=== PATIENT | male | born 1960 | race American Indian/Alaskan Native ===

== ENCOUNTER 2018-06-07 14:48 | Inpatient (IN) | payer BC, MEDICAID, OTHER ==
[2018-06-07 14:57] VITALS: BMI 19.6
[2018-06-07] MEDS: Albuterol-Ipratrop 3 mg / 0.5 (3 ml) UD IH SCH ×3 (16:15→17:05)
--- NOTE | 2018-06-07 16:18 | ED PDOC ---
Arrival/HPI - General Historian: Patient - History of Present Illness Narrative History of Present Illness (Text): 06/07/18 16:23 57M w/ a PMH of lung CA dx September 2017 status post chemo/radiation therapy [facility] Patient reported that while receiving infusion yesterday he began experiencing itching/rash, diaphoresis, shortness of breath/ wheezing. Speaking w/ staff from [facility] patient received demerol benadryl breathing treatment which lead to resolution of his symptoms; reportedly afebrile in office yesterday. At time of evaluation patient denies any chest pain, palpitations, n/v/d/c, urinary complaints. Did report some improvement w/ breathing treatment. Time/Duration: Prior to Arrival, 24 hours Symptom Onset: Gradual Symptom Course: Worsening Quality: Other <Abiodun Weston - Last Filed: 06/07/18 21:07> <Antonio Arriaga DO - Last Filed: 06/07/18 21:23> - General Chief Complaint: Shortness Of Breath Time Seen by Provider: 06/07/18 16:23 Past Medical History - Provider Review Nursing Documentation Reviewed: Yes - Pulmonary Hx Lung Cancer: Yes - Psychiatric Hx Substance Use: No <Abiodun Weston - Last Filed: 06/07/18 21:07> Family/Social History - Physician Review Nursing Documentation Reviewed: Yes Family/Social History: Unknown Family HX Smoking Status: Former Smoker Hx Alcohol Use: No Hx Substance Use: No <Abiodun Weston - Last Filed: 06/07/18 21:07> Allergies/Home Meds <Abiodun Weston - Last Filed: 06/07/18 21:07> <Antonio Arriaga DO - Last Filed: 06/07/18 21:23> Allergies/Adverse Reactions: Allergies No Known Allergies Allergy (Verified 06/07/18 14:57) Review of Systems - Physician Review All systems were reviewed & negative as marked: Yes - Review of Systems Constitutional: Normal Eyes: Normal ENT: Normal Respiratory: SOB, Wheezing Cardiovascular: Normal. absent: Chest Pain Gastrointestinal: Normal Genitourinary Male: Normal Musculoskeletal: Normal Skin: Normal Neurological: Normal Endocrine: Normal Hemo/Lymphatic: Normal Psychiatric: Normal <Abiodun Weston - Last Filed: 06/07/18 21:07> Physical Exam Vital Signs Temp Pulse Resp Pulse Ox 06/07/18 14:49 99.2 F 110 H 22 97 Temperature: Afebrile Blood Pressure: Normal Pulse: Tachycardic Respiratory Rate: Normal Appearance: Positive for: Well-Appearing, Non-Toxic, Comfortable Pain Distress: None Mental Status: Positive for: Alert and Oriented X 3 - Systems Exam Head: Present: Atraumatic, Normocephalic Pupils: Present: PERRL Extroacular Muscles: Present: EOMI Conjunctiva: Present: Normal Mouth: Present: Moist Mucous Membranes Neck: Present: Normal Range of Motion Respiratory/Chest: Present: Rhonchi (RML). No: Respiratory Distress, Accessory Muscle Use, Wheezes Cardiovascular: Present: Regular Rate and Rhythm, Normal S1, S2. No: Murmurs Abdomen: No: Tenderness, Distention, Peritoneal Signs Back: Present: Normal Inspection Upper Extremity: Present: Normal Inspection. No: Cyanosis, Edema Lower Extremity: Present: Normal Inspection. No: Edema Neurological: Present: GCS=15, CN II-XII Intact, Speech Normal Skin: Present: Warm, Dry, Normal Color. No: Rashes Psychiatric: Present: Alert, Oriented x 3, Normal Insight, Normal Concentration <Abiodun Weston - Last Filed: 06/07/18 21:07> Vital Signs Temp Pulse Resp BP Pulse Ox 06/07/18 16:30 99.2 F 99 H 20 107/66 94 L 06/07/18 14:49 99.2 F 110 H 22 97 <Antonio Arriaga DO - Last Filed: 06/07/18 21:23> Medical Decision Making ED Course and Treatment: 06/07/18 16:36 Impression: 57M w/ lung cancer on immunotherapy due to worsening/ progression of CA presenting w/ SOB post immunotherapy infusion yesterday No significant respiratory distress upon examination; No overt hypoxemia However patient is tachycardic Plan: R/o PE CBC/CMP Trop EKG CTAPE Protocol Duoneb Progress Note: 06/07/18 19:14 CBC shows Hb 7.8 - normocytic - w/ elevated RDW 06/07/18 19:47 CTAPE negative for PE 06/07/18 20:10 Patient explained risks vs benefits of Transfusion ; Patient consents to blood transfusion Type and Cross for 1u ordered 06/07/18 21:[address] Teresa who accepts patient to hospitalist service for management of symptomatic anemia - RAD Interpretation Radiology Orders: 06/07/18 16:07 ANGIO CHEST PE PROTOCOL [CT] Stat - EKG Interpretation EKG Interpretation (Text): 06/07/18 16:22 EKG is Tachycardic regular rhyth, hr 105, no ST/ T wave abnormalities, norm oaxis. - Medication Orders Current Medication Orders: Albuterol/Ipratropium (Duoneb 3 Mg/0.5 Mg (3 Ml) Ud) 3 ml IH Q15M EMILY Stop: 06/07/18 16:46 <Abiodun Weston - Last Filed: 06/07/18 21:07> - Lab Interpretations Lab Results: Troponin I < 0.01 ng/mL 06/07/18 16:50 Total Bilirubin 0.1 mg/dL (0.2-1.3) L 06/07/18 16:50 AST 50 U/L (17-59) 06/07/18 16:50 ALT 33 U/L (7-56) 06/07/18 16:50 Alkaline Phosphatase 105 U/L (38-126) 06/07/18 16:50 Total Protein 6.4 g/dL (5.8-8.3) 06/07/18 16:50 Albumin 3.1 g/dL (3.0-4.8) 06/07/18 16:50 Globulin 3.3 gm/dL 06/07/18 16:50 Albumin/Globulin Ratio 0.9 (1.1-1.8) L 06/07/18 16:50 - RAD Interpretation Radiology Orders: 06/07/18 16:07 ANGIO CHEST PE PROTOCOL [CT] Stat - Medication Orders Current Medication Orders: Discontinued Medications Albuterol/Ipratropium (Duoneb 3 Mg/0.5 Mg (3 Ml) Ud) 3 ml IH Q15M EMILY Stop: 06/07/18 16:46 Last Admin: 06/07/18 17:05 Dose: 3 ml Oxycodone HCl (Oxycodone Immediate Release Tab) 5 mg PO STAT STA Stop: 06/07/18 19:28 Last Admin: 06/07/18 19:43 Dose: 5 mg MAR Pain Assessment Document 06/07/18 19:43 AD (Rec: 06/07/18 19:46 AD [id number]) Pain Reassessment Is this a pain reassessment? No Presence of Pain Presence of Pain Yes Location Pain Location Body Site Back Description Intensity of Pain at present 7 <Antonio Arriaga DO - Last Filed: 06/07/18 21:23> - PA / GRINDING WHEEL OPERATOR / Resident Statement JESSE has reviewed & agrees with the documentation as recorded. / has examined the patient and agrees with the treatment plan. - Scribe Statement The provider has reviewed the documentation as recorded by the Scribe <Antonio Arriaga DO - Last Filed: 06/07/18 21:23> Disposition/Present on Arrival - Present on Arrival Any Indicators Present on Arrival: No History of DVT/PE: No History of Uncontrolled Diabetes: No Urinary Catheter: No History of Decub. Ulcer: No History Surgical Site Infection Following: None - Disposition Have Diagnosis and Disposition been Completed?: Yes Disposition Time: 20:11 Patient Plan: Admission, Telemetry (remote) <Abiodun Weston - Last Filed: 06/07/18 21:07> - Disposition Disposition Time: 19:40 <Antonio Arriaga DO - Last Filed: 06/07/18 21:23> - Disposition Diagnosis: Symptomatic anemia, Lung cancer, Pleural effusion Disposition: HOSPITALIZED Patient Problems: Current Active Problems Problem Status Onset Symptomatic anemia Acute Condition: FAIR
[2018-06-07 17:26] LABS: BASO # 0.01 K/mm3 (0.0-2.0); BASO % 0.2 % (0.0-3.0); EOS # 0.2 (0.0-0.7); HEMOGLOBIN 7.8 g/dL (14.0-18.0); LYMPH # 0.7 (1.2-3.4); LYMPH % 13.9 % (22.0-35.0); MEAN CELL VOLUME 90.5 fl (80.0-105.0); MEAN CORPUSCULAR HEMOGLOBIN 28.5 pg (25.0-35.0); MEAN CORPUSCULAR HGB CONC 31.5 g/dl (31.0-37.0); MEAN PLATELET VOLUME 8.5 fl (7.0-11.0); MONO # 0.4 (0.1-0.6); MONO % 7.4 % (1.0-6.0); RBC 2.74 10^6/uL (3.5-6.1)
[2018-06-07 17:34] LABS: ALB/GLOB RATIO 0.9 (1.1-1.8); ALBUMIN 3.1 g/dL (3.0-4.8); ALT/SGPT 33 U/L (7-56); AST/SGOT 50 U/L (17-59); BLOOD UREA NITROGEN 13 mg/dL (7-21); CALCIUM 8.9 mg/dL (8.4-10.5); GFR NON-AFRICAN AMERICAN > 60
[2018-06-07 17:43] LABS: TROPONIN I < 0.01 ng/mL
[2018-06-07] MEDS ORDERED: oxyCODONE 5 mg Immediate Release Tab PO STA (19:27)
--- NOTE | 2018-06-07 20:34 | CP.PCM.HP ---
<Darrius Sullivan - Last Filed: 06/08/18 02:11> History of Present Illness - History of Present Illness History of Present Illness: Darrius Sullivan, PGY1 Medicine H&P for Dr. Teresa cc: "itching/rash s/p chemo/immunotherapy with shortness of breath" Patient is a 57M w/ a PMHx of small cell lung cancer (diagnosed September 2017) with chemo/radiation/immunotherapy at [facility] in [place] who presented for itching/rash that occurred after chemo/immunotherapy yesterday. Patient received demerol and benadryl at the time of treatment and patient's symptoms had resolved. Patient also presents for shortness of breath for 1.5 months in duration. He states that he recently had a thoracentesis in [facility] 2 weeks ago for a pleural effusion. He still says that he gets short of breath even after having the thoracentesis done. He also endorses an associated cough with clear-colored phlegm. He endorses 12 pound weight loss in the past month. He also has occasional orthopnea. He had fevers and headache the night before. Currently, he denies cp, headaches, abdominal pain, nausea, vomiting, diarrhea, constipation, bladder/bowel changes, bloody stools. Patient's daughter, Tg, was present at bedside ([phone]). A full 12 point ROS was conducted and unremarkable except as stated above. PMD: Dr. Moncada Pharm: [facility] ([place]) Heme/Onc: Dr. Kentrell Weston PMHx: small cell lung cancer (with chemo/rads therapy, currently on immunotherapy; Dx September 2017) PSHx: Feeding tube (placed 4 months ago after receiving radiation therapy) Meds: Imprime PGG, benadryl, famotidine, meperidine, oxycodone, tylenol Allergies: NKDA SocialHx: smokes 1/2 PPD x 20 years. Denies EtOH use. Denies recreational drug use. FamHx: Father had lung cancer. Mother had HTN and TN. Present on Admission - Present on Admission Any Indicators Present on Admission: No Review of Systems - Review of Systems All systems: reviewed and no additional remarkable complaints except (as per HPI) Past Patient History - Past Social History Smoking Status: Former Smoker - PULMONARY Hx Lung Cancer: Yes - PSYCHIATRIC Hx Substance Use: No - SURGICAL HISTORY Hx Surgeries: No Meds Allergies/Adverse Reactions: Allergies Allergy/AdvReac Type Severity Reaction Status Date / Time No Known Allergies Allergy Verified 06/07/18 14:57 Physical Exam - Constitutional Appears: No Acute Distress, Cachectic - Head Exam Head Exam: ATRAUMATIC, NORMAL INSPECTION, NORMOCEPHALIC - Eye Exam Eye Exam: EOMI, Normal appearance, PERRL Additional comments: Pale conjunctiva - ENT Exam ENT Exam: Mucous Membranes Moist, Normal Exam - Neck Exam Neck exam: Negative for: Lymphadenopathy - Respiratory Exam Respiratory Exam: Decreased Breath Sounds (RLL decreased breath sounds ), NORMAL BREATHING PATTERN. absent: Accessory Muscle Use, Chest Wall Tenderness, Rales, Rhonchi, Wheezes - Cardiovascular Exam Cardiovascular Exam: REGULAR RHYTHM, +S1, +S2 - GI/Abdominal Exam GI & Abdominal Exam: Normal Bowel Sounds, Soft. absent: Distended, Firm, Guarding, Tenderness Additional comments: Feeding tube in place. - Extremities Exam Extremities exam: Positive for: normal capillary refill, normal inspection, pedal pulses present. Negative for: calf tenderness, pedal edema - Back Exam Back exam: NORMAL INSPECTION - Neurological Exam Neurological exam: Alert, CN II-XII Intact, Oriented x3 - Psychiatric Exam Psychiatric exam: Normal Affect, Normal Mood - Skin Skin Exam: Dry, Intact, Normal Color, Warm Results - Vital Signs Recent Vital Signs: Last Vital Signs Temp 99.2 F 06/07/18 16:30 Pulse 99 H 06/07/18 16:30 Resp 20 06/07/18 16:30 BP 107/66 06/07/18 16:30 Pulse Ox 94 L 06/07/18 16:30 - Labs Result Diagrams: 06/07/18 16:50 06/07/18 16:50 Labs: Laboratory Results - last 24 hr 06/07/18 06/07/18 16:50 16:50 WBC 5.0 RBC 2.74 L Hgb 7.8 L Hct 24.8 L MCV 90.5 MCH 28.5 MCHC 31.5 RDW 16.0 H Plt Count 356 MPV 8.5 Neut % (Auto) 75.5 H Lymph % (Auto) 13.9 L Stark % (Auto) 7.4 H Eos % (Auto) 3.0 Baso % (Auto) 0.2 Lymph # (Auto) 0.7 L Stark # (Auto) 0.4 Eos # (Auto) 0.2 Baso # (Auto) 0.01 Absolute Neuts (auto) 3.76 Sodium 135 Potassium 4.3 Chloride 100 Carbon Dioxide 31 Anion Gap 8 L BUN 13 Creatinine 0.7 L Est GFR ( Amer) > 60 Est GFR (Non-Af Amer) > 60 Random Glucose 90 Calcium 8.9 Total Bilirubin 0.1 L AST 50 ALT 33 Alkaline Phosphatase 105 Troponin I < 0.01 Total Protein 6.4 Albumin 3.1 Globulin 3.3 Albumin/Globulin Ratio 0.9 L Assessment & Plan - Assessment and Plan (Free Text) Assessment: Patient is a 57M w/ a PMH of small cell lung cancer (diagnosed September 2017) status post chemo/radiation/immnotherapy at [facility] in [place] who presented for itching/rash that occurred after chemo/radiation therapy yesterday. Patient will be admitted to remote telemetry. Plan: Shortness of breath 2/2 Large R-Pleural Effusion vs Undiagnosed COPD - xopenex q2 prn and q6 karthik - atrovent BID - pulmicort q12 - Brovana q12 - solumedrol 20mg IV q8 - Echo - IR on consult for possible thoracentesis - CT A/P: no evidence of PE. Large R-Pleural effusion, partially loculated. Extensive bilateral hilar and diffuse mediastinal adenopathy. - EKG: tachycardia, HR 105. No ST or T wave changes. Itching/Rash 2/2 Chemo/Immunotherapy Side Effects for Small Cell Carcinoma of the Lung - Resolved yesterday after given benadryl and demerol after immunotherapy - Benadryl 25 mg IVP q12 prn - will monitor for adverse reactions Anemia 2/2 Myelosuppression - iron studies ordered - trend cbc q6 - Hgb 7.8 (baseline unknown) - transfuse as needed for Hgb < 7 DVT ppx: lovenox GI ppx: ptx Diet: Regular; keep patient NPO past midnight Dispo: Monitor patient on remote telemetry. Further recs from IR. Case was discussed and reviewed with Attending Physician, Dr. Teresa <Rob Teresa - Last Filed: 06/08/18 21:29> Results - Vital Signs Recent Vital Signs: Last Vital Signs Temp 98.2 F 03/07/19 16:18 Pulse 107 H 06/08/18 16:18 Resp 20 06/08/18 16:18 BP 108/70 06/08/18 16:18 Pulse Ox 97 06/08/18 16:18 - Labs Result Diagrams: 06/08/18 14:20 06/08/18 06:00 Labs: Laboratory Results - last 24 hr 06/07/18 06/07/18 06/07/18 16:50 21:05 22:51 WBC RBC Hgb Hct MCV MCH MCHC RDW Plt Count MPV Neut % (Auto) Lymph % (Auto) Stark % (Auto) Eos % (Auto) Baso % (Auto) Lymph # (Auto) Stark # (Auto) Eos # (Auto) Baso # (Auto) Absolute Neuts (auto) Neutrophils % (Manual) Lymphocytes % (Manual) Monocytes % (Manual) Large Platelets Polychromasia Ovalocytes Retic Count 0.88 Sodium Potassium Chloride Carbon Dioxide Anion Gap BUN Creatinine Est GFR ( Amer) Est GFR (Non-Af Amer) Random Glucose Calcium Iron TIBC % Saturation Transferrin Ferritin Total Bilirubin AST ALT Alkaline Phosphatase Total Protein Albumin Globulin Albumin/Globulin Ratio Vitamin B12 Folate Procalcitonin Blood Type O POSITIVE Blood Type Confirm O POSITIVE Antibody Screen Negative Crossmatch See Detail BBK History Checked No verified bt 06/08/18 06/08/18 06/08/18 06:00 06:00 06:00 WBC RBC Hgb Hct MCV MCH MCHC RDW Plt Count MPV Neut % (Auto) Lymph % (Auto) Stark % (Auto) Eos % (Auto) Baso % (Auto) Lymph # (Auto) Stark # (Auto) Eos # (Auto) Baso # (Auto) Absolute Neuts (auto) Neutrophils % (Manual) Lymphocytes % (Manual) Monocytes % (Manual) Large Platelets Polychromasia Ovalocytes Retic Count Sodium 137 Potassium 5.1 H Chloride 101 Carbon Dioxide 31 Anion Gap 10 BUN 11 Creatinine 0.7 L Est GFR ( Amer) > 60 Est GFR (Non-Af Amer) > 60 Random Glucose 135 H Calcium 9.4 Iron < 10 L TIBC 188 L % Saturation TNP Transferrin 132.32 L Ferritin 142.0 Total Bilirubin 0.2 AST 46 ALT 29 Alkaline Phosphatase 97 Total Protein 6.8 Albumin 3.3 Globulin 3.4 Albumin/Globulin Ratio 1.0 L Vitamin B12 > 1000 H Folate 8.4 Procalcitonin Blood Type Blood Type Confirm Antibody Screen Crossmatch BBK History Checked 06/08/18 06/08/18 06/08/18 06:00 06:00 14:20 WBC 3.9 L D 4.3 L RBC 2.97 L 3.00 L Hgb 8.4 L 8.5 L Hct 26.8 L 26.9 L MCV 90.2 89.7 MCH 28.3 28.3 MCHC 31.3 31.6 RDW 16.0 H 16.0 H Plt Count 386 344 MPV 8.5 8.3 Neut % (Auto) 90.1 H 90.4 H Lymph % (Auto) 8.4 L 8.2 L Stark % (Auto) 1.5 1.4 Eos % (Auto) 0.0 L 0.0 L Baso % (Auto) 0.0 0.0 Lymph # (Auto) 0.3 L 0.4 L Stark # (Auto) 0.1 0.1 Eos # (Auto) 0.0 0.0 Baso # (Auto) 0.00 0.00 Absolute Neuts (auto) 3.54 3.86 Neutrophils % (Manual) 87 H Lymphocytes % (Manual) 8 L Monocytes % (Manual) 5 Large Platelets Present Polychromasia Slight Ovalocytes Slight Retic Count Sodium Potassium Chloride Carbon Dioxide Anion Gap BUN Creatinine Est GFR ( Amer) Est GFR (Non-Af Amer) Random Glucose Calcium Iron TIBC % Saturation Transferrin Ferritin Total Bilirubin AST ALT Alkaline Phosphatase Total Protein Albumin Globulin Albumin/Globulin Ratio Vitamin B12 Folate Procalcitonin 9.15 H Blood Type Blood Type Confirm Antibody Screen Crossmatch BBK History Checked Attending/Attestation - Attestation I have personally seen and examined this patient.: Yes I have fully participated in the care of the patient.: Yes I have reviewed all pertinent clinical information: Yes Notes (Text): 06/08/18 21:28 Seen and examined. Dyspnea 2/2 R. pleural effusion, lung CA, COPD and or Immunotherapy RXN. Will consult Pulm/IR, steroids, pulmicort, Xopenex and atrovent, 2 D echo to R/O pericardial effusion and or cardiac etiology. A & P as above.
[2018-06-07] MEDS ORDERED: Levalbuterol 0.63 MG/3 ML Inhal Soln UD IH PRN (21:59)
[2018-06-07] MEDS: Ipratropium 0.02% Inhal Soln (0.5 mg/2.5 ml) UD IH SCH (22:30)
[2018-06-07] MEDS: MethylPREDNISolone 40 mg Vial IVP SCH (22:30)
[2018-06-07] MEDS ORDERED: DiphenhydrAMINE 50 mg/ml Inj IVP PRN (22:50)
--- NOTE | 2018-06-07 22:56 | CARD ---
APPROVED REPORT Date of service: 06/07/2018 EKG Measurement Heart [id number] <Conclusion> Sinus tachycardia Otherwise normal ECG
[2018-06-08] MEDS: guaiFENesin-DM 600-30 mg ER Tab PO SCH ×3 (01:20→17:45)
[2018-06-08] MEDS: Levalbuterol 0.63 MG/3 ML Inhal Soln UD IH SCH ×3 (01:43→13:40)
[2018-06-08] MEDS ORDERED: Oxycodone/Acetaminophen 5/325 mg Tab PO ONE (06:36)
[2018-06-08 06:41] LABS: HEMOGLOBIN 8.4 g/dL (14.0-18.0); LYMPH # 0.3 (1.2-3.4); LYMPH % 8.4 % (22.0-35.0); MEAN CELL VOLUME 90.2 fl (80.0-105.0); MEAN CORPUSCULAR HEMOGLOBIN 28.3 pg (25.0-35.0); MEAN CORPUSCULAR HGB CONC 31.3 g/dl (31.0-37.0); MEAN PLATELET VOLUME 8.5 fl (7.0-11.0); MONO # 0.1 (0.1-0.6); MONO % 1.5 % (1.0-6.0); PLATELET COUNT 386 10^3/uL (120.0-450.0); RBC 2.97 10^6/uL (3.5-6.1); WHITE BLOOD COUNT 3.9 10^3/uL (4.5-11.0)
[2018-06-08 06:51] LABS: ALBUMIN 3.3 g/dL (3.0-4.8); ALT/SGPT 29 U/L (7-56); AST/SGOT 46 U/L (17-59); BLOOD UREA NITROGEN 11 mg/dL (7-21); CALCIUM 9.4 mg/dL (8.4-10.5); GFR NON-AFRICAN AMERICAN > 60
[2018-06-08 07:06] LABS: IRON < 10 ug/dL (45-180)
[2018-06-08 07:07] LABS: TOTAL IRON BINDING CAPACITY 188 ug/dL (261-462)
[2018-06-08] MEDS: Ipratropium 0.02% Inhal Soln (0.5 mg/2.5 ml) UD IH SCH (07:42)
[2018-06-08] MEDS ORDERED: Budesonide 0.5 mg/2 ml Inhal Susp UD IH SCH (08:00)
[2018-06-08] MEDS ORDERED: Arformoterol 15 mcg/2 ml Inh Sol IH SCH (08:00)
[2018-06-08] MEDS: MethylPREDNISolone 40 mg Vial IVP SCH (09:30)
--- NOTE | 2018-06-08 10:20 | CT ---
Date of service: 06/07/2018 PROCEDURE: CT Chest with contrast (Pulmonary Angiogram) HISTORY: r/o PE COMPARISON: None available. TECHNIQUE: Axial computed tomography images were obtained of the chest in the pulmonary arterial phase of enhancement. Coronal and sagittal reformatted images were created and reviewed. Intravenous contrast dose: 148 cc of Omnipaque 350 Radiation dose: Total exam DLP = 294.11 mGy-cm. This CT exam was performed using one or more of the following dose reduction techniques: Automated exposure control, adjustment of the mA and/or kV according to patient size, and/or use of iterative reconstruction technique. FINDINGS: PULMONARY ARTERIES: Unremarkable. No pulmonary embolism. AORTA: No acute findings. No thoracic aortic aneurysm. Minimal aortic calcification LUNGS: There is dense alveolar consolidation of the right lung consistent with pneumonia. PLEURAL SPACES: Moderate size right pleural effusion HEART: Unremarkable. No cardiomegaly. No significant pericardial effusion. LYMPH NODES: There is retroperitoneal adenopathy in the upper abdomen BONES, CHEST WALL: Unremarkable. No fracture or destructive lesion OTHER FINDINGS: The report concurs with the preliminary [facility] report IMPRESSION: Unremarkable CT pulmonary angiogram. No pulmonary embolus. There is dense alveolar consolidation of the right lung consistent with pneumonia. Moderate size right pleural effusion
[2018-06-08 10:24] LABS: LYMPHOCYTE 8 % (22.0-35.0); MONOCYTE 5 % (1.0-6.0); NEUTROPHIL 87 % (50.0-70.0)
[2018-06-08 10:25] LABS: LARGE PLATELETS PRESENT; POLYCHROMASIA SLIGHT
[2018-06-08 10:26] LABS: OVALOCYTES SLIGHT
--- NOTE | 2018-06-08 13:47 | US ---
PROCEDURE: Ultrasound guided right thoracentesis. CLINICAL HISTORY: Small cell lung carcinoma. Recurrent right pleural effusion with shortness of breath. Needs thoracentesis. PHYSICIAN(S): Stoney Lo MD. TECHNIQUE: The relative risks and indications of the procedure were explained to the patient and consent obtained. The patient was placed in a sitting position on the stretcher and sonography of the right chest performed. This revealed a moderate sized rightpleural effusion. A right posterolateral intercostal approach was selected and the area prepped and draped usual sterile fashion. 1% Xylocaine was used to anesthetize the skin and soft tissues. A 7 [place]e thoracentesis catheter was trocared into the right pleural cavity and 1200 ccof slightly turbid yellow fluid aspirated. A cytology specimen was sent IMPRESSION: 1. Ultrasound guided right thoracentesis. 1200 cc of turbid yellow fluid aspirated
[2018-06-08 14:01] LABS: FOLATE 8.4 ng/mL
[2018-06-08 14:31] LABS: HEMOGLOBIN 8.5 g/dL (14.0-18.0); LYMPH # 0.4 (1.2-3.4); LYMPH % 8.2 % (22.0-35.0); MEAN CELL VOLUME 89.7 fl (80.0-105.0); MEAN CORPUSCULAR HEMOGLOBIN 28.3 pg (25.0-35.0); MEAN CORPUSCULAR HGB CONC 31.6 g/dl (31.0-37.0); MEAN PLATELET VOLUME 8.3 fl (7.0-11.0); MONO # 0.1 (0.1-0.6); MONO % 1.4 % (1.0-6.0); WHITE BLOOD COUNT 4.3 10^3/uL (4.5-11.0)
[2018-06-08] MEDS ORDERED: Oxycodone/Acetaminophen 10/325 mg Tab PO PRN (14:41)
--- NOTE | 2018-06-08 16:13 | CARD ---
APPROVED REPORT Date of service: 06/08/2018 EXAM: Two-dimensional and M-mode echocardiogram with Doppler and color Doppler. INDICATION Pleural Effusion 2D DIMENSIONS Left Atrium (2D)3.5 (1.6-4.0cm)IVSd1.2 (0.7-1.1cm) LVDd4.8 (3.9-5.9cm)PWd1.0 (0.7-1.1cm) LVDs3.4 (2.5-4.0cm)FS (%) 29.6 % LVEF (%)56.5 (>50%) M-Mode DIMENSIONS Aortic Root3.30 (2.2-3.7cm)Aortic Cusp Exc.2.40 (1.5-2.0cm) Aortic Valve AoV Peak Astxfags96.2cm/Antonio Peak GR.4mmHg Mitral Valve E/A ratio0.0 TDI E/Lateral E'0.0E/Medial E'0.0 LEFT VENTRICLE The left ventricle is normal size. There is normal left ventricular wall thickness. The left ventricular function is normal. The left ventricular ejection fraction is within the normal range. There is normal LV segmental wall motion. Transmitral Doppler flow pattern is Grade I-abnormal relaxation pattern. RIGHT VENTRICLE The right ventricle is normal size. There is normal right ventricular wall thickness. The right ventricular systolic function is normal. ATRIA The left atrium size is normal. The right atrium size is normal. AORTIC VALVE The aortic valve is normal in structure. No aortic regurgitation is present. There is no aortic valvular stenosis. MITRAL VALVE The mitral valve is normal in structure. There is no mitral valve regurgitation noted. There is no mitral valve stenosis. TRICUSPID VALVE The tricuspid valve is normal in structure. There is trace tricuspid regurgitation. PULMONIC VALVE The pulmonary valve is normal in structure. There is trace pulmonic valvular regurgitation. GREAT VESSELS The aortic root is normal in size. The IVC is normal in size and collapses >50% with inspiration. PERICARDIAL EFFUSION There is a small pericardial effusion.No Tamponade <Conclusion> There is normal left ventricular wall thickness. The left ventricular function is normal. The left ventricular ejection fraction is within the normal range. There is normal LV segmental wall motion. Transmitral Doppler flow pattern is Grade I-abnormal relaxation pattern. There is a small pericardial effusion.No Tamponade
[2018-06-08 20:04] VITALS: BP 108/70; PULSE 107; RESP 20; TEMP 98.2; O2SAT 97
[2018-06-09] MEDS ORDERED: Pantoprazole 40 mg EC Tab PO SCH (07:30)
[2018-06-09] MEDS ORDERED: Enoxaparin 30 mg Syringe SC SCH (10:00)
== END 2018-06-08 18:50 | disposition home or self-care (01) | DRG 85 ==
LOC: ED 14:48 → ERH 20:14 → 3RNO 23:21
PROVIDERS: ADMIT Internal Medicine; ATTEND Internal Medicine
PROC: 0W993ZZ Drainage of Right Pleural Cavity, Percutaneous Approach (ICD-10-PCS; principal; 2018-06-08 11:00)
DX: J90 Pleural effusion, not elsewhere classified (principal); C34.90 Malignant neoplasm of unspecified part of unspecified bronchus or lung; L27.0 Generalized skin eruption due to drugs and medicaments taken internally; T45.1X5A Adverse effect of antineoplastic and immunosuppressive drugs, initial encounter; R61 Generalized hyperhidrosis; R06.02 Shortness of breath; R06.2 Wheezing; D64.9 Anemia, unspecified; Z87.891 Personal history of nicotine dependence

== ENCOUNTER 2018-08-09 10:22 | Inpatient (IN) | payer MEDICAID ==
[2018-08-09 10:42] VITALS: BMI 19.9
--- NOTE | 2018-08-09 11:31 | ED PDOC ---
Arrival/HPI - General Chief Complaint: Cough, Cold, Congestion Time Seen by Provider: 08/09/18 11:24 Historian: Patient - History of Present Illness Narrative History of Present Illness (Text): 08/09/18 11:24 CC: pleuritic chest pain, cough 58 yo male w/PMH of SCLC (following at [facility] every Tuesday) presents to ED for evaluation of hospital for a 3 week period of cough, chest tightness, orthopnea, and back pain. Patient states that he takes Percocet when needed to make the pain less severe. Patient states that he noted a back lump as well during this past 3 weeks which was not present before. Patient states the bump feels sore. Patient reports he follows up every Tuesday at [facility] and has a repeat PET scan coming up next week. Patient states this past Tuesday he complained of similar symptoms at [facility] when getting treatment and was recommended by healthcare staff at [facility] to go to the ED if symptoms became worse. Patient wants to make sure he does not have pleural effusions or a pneumonia because he was hospitalized in June at [facility] [place] for a pneumonia with pleural effusions. Admits to chest tightness, cough w/ hemoptysis, orthopnea, ETIENNE when walking steps, and pain with deep breathing or coughing. Denies fevers, chills, chest pain, n/v, constipation or diarrhea, and dysuria. Time/Duration: > week Symptom Onset: Gradual Symptom Course: Worsening Quality: Tightness Context: Exertion Past Medical History - Provider Review Nursing Documentation Reviewed: Yes Primary Care Provider: Naeem Moncada - Infectious Disease Hx of Infectious Diseases: None - Cardiac Hx Cardiac Disorders: No - Pulmonary Hx Lung Cancer: Yes - Neurological Hx Neurological Disorder: No - HEENT Hx HEENT Disorder: No - Renal Hx Renal Disorder: No - Endocrine/Metabolic Hx Endocrine Disorders: No - Hematological/Oncological Hx Blood Disorders: Yes Hx Cancer: Yes (lung Ca) Hx Chemotherapy: Yes - Integumentary Hx Dermatological Disorder: No - Musculoskeletal/Rheumatological Hx Musculoskeletal Disorders: Yes Hx Falls: No Hx Herniated Disk: Yes - Gastrointestinal Hx Gastrointestinal Disorders: Yes HX Swallowing Problems: Yes (with XRT) Other/Comment: feeding tube. PEG - Genitourinary/Gynecological Hx Genitourinary Disorders: No - Psychiatric Hx Psychophysiologic Disorder: No Hx Substance Use: Yes - Surgical History Other/Comment: Lung sx for BX Family/Social History Family/Social History: No Known Family HX Smoking Status: Former Smoker Hx Alcohol Use: No (former etoh abuse) Hx Substance Use: Yes Substance used: marijuana Allergies/Home Meds Allergies/Adverse Reactions: Allergies No Known Allergies Allergy (Verified 08/09/18 10:30) Home Medications: Home Meds Medication Instructions Recorded Confirmed Acetaminophen [Tylenol 325mg tab] 2 tab PO Q4H PRN 06/08/18 06/08/18 Acetaminophen/Oxycodone Hydr 1 tab PO BID PRN 06/08/18 06/08/18 [Percocet 10/325 mg Tab] Docusate [Colace] 1 tab PO BID 06/08/18 06/08/18 Mag Hydrox/Aluminum Hyd/Simeth 30 ml PO BID 06/08/18 06/08/18 [Mag-Al Plus Xs Suspension] Review of Systems - Physician Review All systems were reviewed & negative as marked: Yes - Review of Systems Constitutional: Normal, Weight Change. absent: Fatigue, Fevers, Night Sweats Eyes: Normal. absent: Vision Changes, Photophobia ENT: Normal. absent: Hearing Changes Respiratory: SOB, Cough, Sputum, Other (hemoptysis). absent: Wheezing Cardiovascular: Normal, ETIENNE, Orthopnea. absent: Chest Pain, Palpitations Gastrointestinal: Normal. absent: Abdominal Pain, Stool Changes, Constipation, Diarrhea Genitourinary Male: Normal. absent: Dysuria, Frequency, Hematuria Musculoskeletal: Back Pain. absent: Arthralgias, Neck Pain, Joint Swelling Skin: Other (bump on posterior thorax around T3-T4 level on right). absent: Rash, Pruritis, Skin Lesions, Laceration Neurological: Normal. absent: Headache, Dizziness, Focal Weakness Endocrine: Normal. absent: Diaphoresis, Polyuria, Polydipsia Psychiatric: Normal. absent: Anxiety, Depression Physical Exam Vital Signs Temp Pulse Resp BP Pulse Ox 08/09/18 10:35 98.2 F 105 H 18 115/77 95 Temperature: Afebrile Blood Pressure: Normal Pulse: Tachycardic Respiratory Rate: Normal Appearance: Positive for: Well-Appearing, Non-Toxic, Comfortable Pain Distress: Mild Mental Status: Positive for: Alert and Oriented X 3 - Systems Exam Head: Present: Atraumatic, Normocephalic. No: Tenderness, Contusion Pupils: Present: PERRL. No: Sluggish Extroacular Muscles: Present: EOMI. No: Gaze Palsy, Entrapment Mouth: Present: Moist Mucous Membranes Neck: Present: Normal Range of Motion. No: Meningeal Signs, MIDLINE TENDERNESS, Paraspinal Tenderness Respiratory/Chest: Present: Good Air Exchange, Decreased Breath Sounds (on lower bases b/l). No: Respiratory Distress, Accessory Muscle Use, Wheezes, Rales, Rhonchi, Tachypneic Cardiovascular: Present: Normal S1, S2, Tachycardic. No: Murmurs Abdomen: Present: Normal Bowel Sounds. No: Tenderness, Distention, Rebound, Guarding Back: Present: Other (1 cm by 1 cm bump on posterior thorax around T3-T4) Upper Extremity: Present: Normal Inspection. No: Cyanosis, Edema Lower Extremity: Present: Normal Inspection. No: Edema, Cyanosis Neurological: Present: GCS=15, CN II-XII Intact, Speech Normal Skin: Present: Warm, Dry, Normal Color Psychiatric: Present: Alert, Oriented x 3, Normal Insight, Normal Concentration Medical Decision Making ED Course and Treatment: 08/09/18 11:38 Impression 58 yo male w/ PMH of SCLC (following at [facility], has completed chemotherapy/RT and currently undergoing immunomodulator therapy) presents to ED for evaluation of 3 week history of cough w/ hemoptysis, orthopnea, chest tightness, and back pain. Plan -CBC -BMP -CXR -BNP -VBG -Magnesium -U/A -BCx -1 x dose of morphine 2m -CTA -1 x dose of IV protonix for heartburn -1 x dose of Azithromycin -1 x dose of Zosyn Prior Visits 08/30/12: L Leg Pain 06/07/18: Symptomatic Anemia and Pleural Effusions Progress Notes Reviewed blood work, VBG, and B-TRIAL MANAGER. Wells Criteria for PE= 3.5 points, will order CTA to rule out blood clot due to tachycardia, hemoptysis and treatment for malignancy. Chest CT will also define the size if any of pleural effusions, if necessary can be tapped for symptomatic relief Patient began complaining of heartburn. Given 1 x dose of protonix 40mg. CTA showed no pulmonary embolus, but did show a large right sided pleural effusion and right sided PNA Discussion was had with Hospitalist, Dr. Weston, and she agreed that the patient will be accepted to her service. 08/09/18 15:00 Re-evaluation Time: 15:00 Reassessment Condition: Unchanged - Lab Interpretations Lab Results: 08/09/18 10:50 08/09/18 10:50 Lab Results 08/09/18 12:40: Urine Color Yellow, Urine Appearance Turbid, Urine pH 7.0, Ur Specific [place] 1.025, Urine Protein 30 H, Urine Glucose (UA) Negative, Urine Ketones Negative, Urine Blood Large H, Urine Nitrate Negative, Urine Bilirubin Negative, Urine Urobilinogen 1.0 H, Ur Leukocyte Esterase Negative, Urine RBC 0 - 2, Urine WBC 5 - 10 H, Urine Bacteria Trace 08/09/18 12:00: pO2 43, VBG pH 7.43, VBG pCO2 47.0, VBG HCO3 31.2 H, VBG Total CO2 32.6 H, VBG O2 Sat (Calc) 79.5 H, VBG Base Excess 5.8 H, VBG Potassium 3.9, Glucose 94, Lactate 0.7, FiO2 21.0, Sodium 138.0, Chloride 104.0, Venous Blood Potassium 3.9 08/09/18 10:50: Sodium 138, Potassium 3.8, Chloride 101, Carbon Dioxide 29, Anion Gap 11, BUN 11, Creatinine 0.7 L, Est GFR ( Amer) > 60, Est GFR (Non-Af Amer) > 60, Random Glucose 139 H, Calcium 9.1, Magnesium 1.9, NT-Pro-B Natriuret Pep 82.7 08/09/18 10:50: PT 13.5 H, INR 1.19, APTT 32.5 08/09/18 10:50: WBC 5.5 D, RBC 3.61, Hgb 9.0 L, Hct 29.7 L, MCV 82.3 D, MCH 24.9 L, MCHC 30.3 L, RDW 17.8 H, Plt Count 365, MPV 8.4, Neut % (Auto) 67.9, Lymph % (Auto) 21.1 L, [place] % (Auto) 8.3 H, Eos % (Auto) 2.5, Baso % (Auto) 0.2, Lymph # (Auto) 1.2, [place] # (Auto) 0.5, Eos # (Auto) 0.1, Baso # (Auto) 0.01, Absolute Neuts (auto) 3.76 I have reviewed the lab results: Yes Interpretation: All labs normal - RAD Interpretation Radiology Orders: 08/09/18 11:03 CHEST PORTABLE [RAD] Stat Radiology Results Chest X-Ray 08/09/18 11:03 IMPRESSION: No left-sided infiltrate. Persistent medial right pulmonary opacity is identified potentially reflecting postobstructive atelectasis though pneumonia is not excluded. Mild right pleural effusion is identified increased in the interval. Left hilar adenopathy not excluded. Radiology Results Chest X-Ray 08/09/18 11:03 IMPRESSION: No left-sided infiltrate. Persistent medial right pulmonary opacity is identified potentially reflecting postobstructive atelectasis though pneumonia is not excluded. Mild right pleural effusion is identified increased in the interval. Left hilar adenopathy not excluded. Chest CT 08/09/18 12:34 IMPRESSION: Right-sided pneumonia and large pleural effusion. 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 Ulcer: No History Surgical Site Infection Following: None - Disposition Have Diagnosis and Disposition been Completed?: Yes Diagnosis: Lung cancer, Pleural effusion, Bacterial pneumonia Disposition: HOSPITALIZED Disposition Time: 15:03 Patient Plan: Admission Condition: FAIR Referrals: Naeem Moncada MD [Primary Care Provider] - Follow up with primary Forms: [employer] ([employer])
[2018-08-09] MEDS ORDERED: Morphine 2 mg/ml ISec IVP STA (11:49)
[2018-08-09 11:57] LABS: BASO # 0.01 K/mm3 (0.0-2.0); BASO % 0.2 % (0.0-3.0); EOS # 0.1 (0.0-0.7); EOS % 2.5 % (1.5-5.0); LYMPH # 1.2 (1.2-3.4); LYMPH % 21.1 % (22.0-35.0); MEAN CELL VOLUME 82.3 fl (80.0-105.0); MEAN CORPUSCULAR HEMOGLOBIN 24.9 pg (25.0-35.0); MEAN CORPUSCULAR HGB CONC 30.3 g/dl (31.0-37.0); MEAN PLATELET VOLUME 8.4 fl (7.0-11.0); MONO # 0.5 (0.1-0.6); MONO % 8.3 % (1.0-6.0); RBC 3.61 10^6/uL (3.5-6.1); RED CELL DISTRIBUTION WIDTH 17.8 % (11.5-14.5); WHITE BLOOD COUNT 5.5 10^3/uL (4.5-11.0)
[2018-08-09 12:04] LABS: BLOOD UREA NITROGEN 11 mg/dL (7-21); CALCIUM 9.1 mg/dL (8.4-10.5); GFR NON-AFRICAN AMERICAN > 60
[2018-08-09 12:05] LABS: INR 1.19; PARTIAL THROMBOPLASTIN TIME 32.5 Seconds (26.9-38.3); PROTHROMBIN TIME 13.5 SECONDS (9.4-12.5)
[2018-08-09 12:10] LABS: VENOUS BLOOD GAS BASE EXCESS 5.8 mmol/L (0.0-2.0); VENOUS BLOOD GAS PO2 43 mm/Hg (30-55); VENOUS BLOOD PH 7.43 (7.32-7.43)
[2018-08-09 12:12] LABS: B-TYPE NATRIURETIC PEPTIDE 82.7 pg/mL (0-450)
[2018-08-09] MEDS ORDERED: Iohexol 350 MG/100 ML VIAL ONE (12:44)
--- NOTE | 2018-08-09 12:56 | RAD ---
Date of service: 08/09/2018 HISTORY: h/o lung ca s/p thoracocentersis w/ sob COMPARISON: CT angiogram chest 06/07/2018. TECHNIQUE: 1 view obtained. FINDINGS: LUNGS: Persistent or recurrent pulmonary opacification at the medial right hemithorax is reiterated potentially reflecting postobstructive atelectasis in this patient with history of lung cancer. No left-sided infiltrate. Left hilar adenopathy not excluded. PLEURA: No pneumothorax bilaterally or left pleural effusion. Moderate right pleural effusion present including in the minor fissure. CARDIOVASCULAR: No aortic atherosclerotic calcification present. Cardiac size obscured by right-sided pulmonary opacity. No pulmonary vascular congestion. OSSEOUS STRUCTURES: No significant abnormalities. VISUALIZED UPPER ABDOMEN: Normal. OTHER FINDINGS: None. IMPRESSION: No left-sided infiltrate. Persistent medial right pulmonary opacity is identified potentially reflecting postobstructive atelectasis though pneumonia is not excluded. Mild right pleural effusion is identified increased in the interval. Left hilar adenopathy not excluded.
[2018-08-09 13:03] LABS: URINE APPEARANCE TURBID (CLEAR); URINE BILIRUBIN NEGATIVE (NEGATIVE); URINE BLOOD LARGE (NEGATIVE); URINE COLOR YELLOW (YELLOW); URINE GLUCOSE (UA) NEGATIVE (NEGATIVE); URINE LEUKOCYTE ESTERASE NEGATIVE Leu/uL (NEGATIVE); URINE PROTEIN 30 mg/dL (<30 mg/dL)
[2018-08-09 13:09] LABS: URINE RBC 0 - 2 /hpf (0-2)
[2018-08-09 13:10] LABS: URINE BACTERIA TRACE /hpf
[2018-08-09] MEDS ORDERED: Albuterol-Ipratrop 3 mg / 0.5 (3 ml) UD IH STA (14:02)
[2018-08-09] MEDS ORDERED: Albuterol-Ipratrop 3 mg / 0.5 (3 ml) UD ONE (14:11)
--- NOTE | 2018-08-09 14:13 | CT ---
Date of service: 08/09/2018 PROCEDURE: CT Chest with contrast (Pulmonary Angiogram) HISTORY: r/o blood clot COMPARISON: 06/07/2018 CT TECHNIQUE: Axial computed tomography images were obtained of the chest in the pulmonary arterial phase of enhancement. Coronal and sagittal reformatted images were created and reviewed. Intravenous contrast dose: 100 cc of Omni 350 Radiation dose: Total exam DLP = 303.32 mGy-cm. This CT exam was performed using one or more of the following dose reduction techniques: Automated exposure control, adjustment of the mA and/or kV according to patient size, and/or use of iterative reconstruction technique. FINDINGS: PULMONARY ARTERIES: Unremarkable. No pulmonary embolism. AORTA: No acute findings. No thoracic aortic aneurysm. No aortic atherosclerotic calcification or mural plaque present. LUNGS: There is dense consolidation in the right upper and lower lobe consistent with pneumonia PLEURAL SPACES: Large right pleural effusion HEART: Unremarkable. No cardiomegaly. No significant pericardial effusion. LYMPH NODES: No lymphadenopathy. BONES, CHEST WALL: Unremarkable. No fracture or destructive lesion OTHER FINDINGS: Unremarkable. IMPRESSION: Right-sided pneumonia and large pleural effusion. No evidence of pulmonary embolus
[2018-08-09] MEDS ORDERED: Azithromycin 500MG/NS 250ml 500 MG/250 ML BAG IVPB STA (14:52)
[2018-08-09] MEDS ORDERED: Piperacillin/Tazobact 3.375 gm 100 ML IVPB STA (14:52)
--- NOTE | 2018-08-09 16:38 | CP.PCM.HP ---
<Moreno Sweeney - Last Filed: 08/09/18 17:20> History of Present Illness - History of Present Illness History of Present Illness: Moreno Sweeney DO PGY-1 H&P Note for Dr. Enrico Moon: Right thoracic back pain x2 weeks 58 y/o male with PMH of small cell lung cancer (diagnosed September 2017) with chemo/radiation/immunotherapy, recurrent pleural effusion who presents to the ED with 2 weeks h/o right mid-thoracic back pain, sharp, constant, 7-8/10, no radiation, increased with inspiration, relieved with percocet. It's different than his chronic lower back pain. Pain is associated with SOB (for 3 weeks), ETIENNE, cough with blood tinged sputum, chest congestion. Patient denies associated fever, chills, mid-sternal pain, palpitations, hemoptysis. Patient sattes that he recently had URI 2 weeks ago, seen by his PMD and finished 4 days course of amoxicillin and symptoms improved. Patient had 3 hospital admission due to pulmonary effusion since diagnosis. Last admission on June/2018 with thera peutic thoracocentesis. He also noted small superficial lump in right thoracic area between scapula and vertebral spine x1 week. It's non tender, denied similar mass, denies h/o lipoma before. Patient is scheduled for PET scan at [facility] in [place] next week. Patient denies palpitations, headache, dizziness, recent weight loss, leg swelling. 12 points ROS reviewed with pertinent positives as above. PMHx: small cell lung cancer (with chemo/rads therapy, currently on immunother apy; Dx September 2017) PSHx: Feeding tube (placed 4 months ago after receiving radiation therapy, now r emoved) Meds: albuterol, fluticasone, colace, oxycodone, tylenol Allergies: NKDA SocialHx: smokes 1/2 PPD x 20 years. Denies EtOH use. Denies recreational drug use. FamHx: Father had lung cancer. Mother had HTN and SD. PMD: Dr. Moncada Pharm: [facility] ([place]) Heme/Onc: Dr. Kentrell Weston Present on Admission - Present on Admission Any Indicators Present on Admission: No Past Patient History - Infectious Disease Hx of Infectious Diseases: None - Past Social History Smoking Status: Former Smoker - CARDIAC Hx Cardiac Disorders: No - PULMONARY Hx Lung Cancer: Yes - NEUROLOGICAL Hx Neurological Disorder: No - HEENT Hx HEENT Problems: No - RENAL Hx Chronic Kidney Disease: No - ENDOCRINE/METABOLIC Hx Endocrine Disorders: No - HEMATOLOGICAL/ONCOLOGICAL Hx Blood Disorders: Yes Hx Cancer: Yes (lung Ca) Hx Chemotherapy: Yes - INTEGUMENTARY Hx Dermatological Problems: No - MUSCULOSKELETAL/RHEUMATOLOGICAL Hx Musculoskeletal Disorders: Yes Hx Falls: No Hx Herniated Disk: Yes - GASTROINTESTINAL Hx Gastrointestinal Disorders: Yes HX Swallowing Problems: Yes (with XRT) Other/Comment: feeding tube. PEG - GENITOURINARY/GYNECOLOGICAL Hx Genitourinary Disorders: No - PSYCHIATRIC Hx Psychophysiologic Disorder: No Hx Substance Use: Yes - SURGICAL HISTORY Other/Comment: Lung sx for BX Meds Allergies/Adverse Reactions: Allergies Allergy/AdvReac Type Severity Reaction Status Date / Time No Known Allergies Allergy Verified 08/09/18 10:30 Physical Exam - Constitutional Appears: Well, Non-toxic, Cachectic - Head Exam Head Exam: ATRAUMATIC, NORMAL INSPECTION, NORMOCEPHALIC - Eye Exam Eye Exam: EOMI, Normal appearance, PERRL Pupil Exam: NORMAL ACCOMODATION, PERRL - ENT Exam ENT Exam: Mucous Membranes Moist, Normal Exam - Neck Exam Neck exam: Positive for: Normal Inspection - Respiratory Exam Respiratory Exam: Decreased Breath Sounds (on Right lower lobe), Wheezes (diffuse b/l). absent: Chest Wall Tenderness, Rales, Rhonchi, Respiratory Distress, Stridor - Cardiovascular Exam Cardiovascular Exam: Tachycardia, REGULAR RHYTHM, +S1, +S2. absent: Gallop, JVD , Rubs - GI/Abdominal Exam GI & Abdominal Exam: Normal Bowel Sounds, Soft. absent: Tenderness - Extremities Exam Extremities exam: Positive for: normal capillary refill, normal inspection, pedal pulses present. Negative for: tenderness - Back Exam Back exam: absent: CVA tenderness (L), CVA tenderness (R) Additional comments: 1 cm superficial lump in right thoracic area between scapula and vertebral spine, non tender to palpation, no erythema, no wound noted - Neurological Exam Neurological exam: Alert, CN II-XII Intact, Oriented x3, Reflexes Normal - Psychiatric Exam Psychiatric exam: Normal Affect, Normal Mood - Skin Skin Exam: Dry, Intact, Normal Color, Warm Results - Vital Signs Recent Vital Signs: Last Vital Signs Temp 98.2 F 08/09/18 10:35 Pulse 105 H 08/09/18 10:35 Resp 18 08/09/18 10:35 BP 115/77 08/09/18 10:35 Pulse Ox 95 08/09/18 10:35 - Labs Result Diagrams: 08/09/18 10:50 08/09/18 10:50 Labs: Laboratory Results - last 24 hr 08/09/18 08/09/18 08/09/18 10:50 10:50 10:50 WBC 5.5 D RBC 3.61 Hgb 9.0 L Hct 29.7 L MCV 82.3 D MCH 24.9 L MCHC 30.3 L RDW 17.8 H Plt Count 365 MPV 8.4 Neut % (Auto) 67.9 Lymph % (Auto) 21.1 L [place] % (Auto) 8.3 H Eos % (Auto) 2.5 Baso % (Auto) 0.2 Lymph # (Auto) 1.2 [place] # (Auto) 0.5 Eos # (Auto) 0.1 Baso # (Auto) 0.01 Absolute Neuts (auto) 3.76 PT 13.5 H INR 1.19 APTT 32.5 pO2 VBG pH VBG pCO2 VBG HCO3 VBG Total CO2 VBG O2 Sat (Calc) VBG Base Excess VBG Potassium Glucose Lactate FiO2 Sodium 138 Potassium 3.8 Chloride 101 Carbon Dioxide 29 Anion Gap 11 BUN 11 Creatinine 0.7 L Est GFR ( Amer) > 60 Est GFR (Non-Af Amer) > 60 Random Glucose 139 H Calcium 9.1 Magnesium 1.9 NT-Pro-B Natriuret Pep 82.7 Venous Blood Potassium Urine Color Urine Appearance Urine pH Ur Specific [place] Urine Protein Urine Glucose (UA) Urine Ketones Urine Blood Urine Nitrate Urine Bilirubin Urine Urobilinogen Ur Leukocyte Esterase Urine RBC Urine WBC Urine Bacteria 08/09/18 08/09/18 12:00 12:40 WBC RBC Hgb Hct MCV MCH MCHC RDW Plt Count MPV Neut % (Auto) Lymph % (Auto) [place] % (Auto) Eos % (Auto) Baso % (Auto) Lymph # (Auto) [place] # (Auto) Eos # (Auto) Baso # (Auto) Absolute Neuts (auto) PT INR APTT pO2 43 VBG pH 7.43 VBG pCO2 47.0 VBG HCO3 31.2 H VBG Total CO2 32.6 H VBG O2 Sat (Calc) 79.5 H VBG Base Excess 5.8 H VBG Potassium 3.9 Glucose 94 Lactate 0.7 FiO2 21.0 Sodium 138.0 Potassium Chloride 104.0 Carbon Dioxide Anion Gap BUN Creatinine Est GFR ( Amer) Est GFR (Non-Af Amer) Random Glucose Calcium Magnesium NT-Pro-B Natriuret Pep Venous Blood Potassium 3.9 Urine Color Yellow Urine Appearance Turbid Urine pH 7.0 Ur Specific [place] 1.025 Urine Protein 30 H Urine Glucose (UA) Negative Urine Ketones Negative Urine Blood Large H Urine Nitrate Negative Urine Bilirubin Negative Urine Urobilinogen 1.0 H Ur Leukocyte Esterase Negative Urine RBC 0 - 2 Urine WBC 5 - 10 H Urine Bacteria Trace Assessment & Plan - Assessment and Plan (Free Text) Assessment: 58 y/o male with PMH of small cell lung cancer (diagnosed September 2017) with chemo/radiation/immunotherapy who presents to the ED with 2 weeks h/o right mid- thoracic back pain. CT chest consistent with large right pleural effusion and PNA. Plan: Large R-Pleural Effusion in the setting of small cell lung cancer: -patient with recurrent effusion and subsequent thoracocentesis, last on 06/2018 -CT chest: large right sided pleural effusion and right sided PNA -O2 NC prn -bed elevation >30 degrees -IR consulted Dr Lo for possible thoracentesis Pneumina: -started vanc, cefepime -f/u procal -f/u blood/sputum Cx -VB.43/47/43. lactate 0.7 -incentive spirometry -ID consulted, Dr Conde Chronic bronchitis/COPD/ ex-smoker: -started xopenex prn/karthik Anemia: -likely due to chronic disease -H/H stable (baseline compared to last admission) -continue to monitor, transfuse prn Lower back pain: -continue home med percocet 10/325 prn q8h Chronic constipation: -likely due to opiate use -continue home colace bid PPX: DVT: SCD GI: protonix Regular diet PT Case reviewed and plan discussed with attending Dr Enrico Sweeney, DO <Mariel Weston R - Last Filed: 08/10/18 07:05> Results - Vital Signs Recent Vital Signs: Last Vital Signs Temp 98.3 F 08/09/18 21:46 Pulse 97 H 08/10/18 06:00 Resp 18 08/09/18 22:45 BP 111/67 08/09/18 21:46 Pulse Ox 96 08/09/18 21:46 - Labs Result Diagrams: 08/10/18 06:00 08/10/18 06:00 Labs: Laboratory Results - last 24 hr 08/09/18 08/09/18 08/09/18 10:50 10:50 10:50 WBC 5.5 D RBC 3.61 Hgb 9.0 L Hct 29.7 L MCV 82.3 D MCH 24.9 L MCHC 30.3 L RDW 17.8 H Plt Count 365 MPV 8.4 Neut % (Auto) 67.9 Lymph % (Auto) 21.1 L [place] % (Auto) 8.3 H Eos % (Auto) 2.5 Baso % (Auto) 0.2 Lymph # (Auto) 1.2 [place] # (Auto) 0.5 Eos # (Auto) 0.1 Baso # (Auto) 0.01 Absolute Neuts (auto) 3.76 PT 13.5 H INR 1.19 APTT 32.5 pO2 VBG pH VBG pCO2 VBG HCO3 VBG Total CO2 VBG O2 Sat (Calc) VBG Base Excess VBG Potassium Glucose Lactate FiO2 Sodium 138 Potassium 3.8 Chloride 101 Carbon Dioxide 29 Anion Gap 11 BUN 11 Creatinine 0.7 L Est GFR ( Amer) > 60 Est GFR (Non-Af Amer) > 60 Random Glucose 139 H Calcium 9.1 Phosphorus Magnesium 1.9 Total Bilirubin AST ALT Alkaline Phosphatase NT-Pro-B Natriuret Pep 82.7 Total Protein Albumin Globulin Albumin/Globulin Ratio Procalcitonin Venous Blood Potassium Urine Color Urine Appearance Urine pH Ur Specific [place] Urine Protein Urine Glucose (UA) Urine Ketones Urine Blood Urine Nitrate Urine Bilirubin Urine Urobilinogen Ur Leukocyte Esterase Urine RBC Urine WBC Urine Bacteria 08/09/18 08/09/18 08/09/18 12:00 12:40 17:00 WBC RBC Hgb Hct MCV MCH MCHC RDW Plt Count MPV Neut % (Auto) Lymph % (Auto) [place] % (Auto) Eos % (Auto) Baso % (Auto) Lymph # (Auto) [place] # (Auto) Eos # (Auto) Baso # (Auto) Absolute Neuts (auto) PT INR APTT pO2 43 VBG pH 7.43 VBG pCO2 47.0 VBG HCO3 31.2 H VBG Total CO2 32.6 H VBG O2 Sat (Calc) 79.5 H VBG Base Excess 5.8 H VBG Potassium 3.9 Glucose 94 Lactate 0.7 FiO2 21.0 Sodium 138.0 Potassium Chloride 104.0 Carbon Dioxide Anion Gap BUN Creatinine Est GFR ( Amer) Est GFR (Non-Af Amer) Random Glucose Calcium Phosphorus Magnesium Total Bilirubin AST ALT Alkaline Phosphatase NT-Pro-B Natriuret Pep Total Protein Albumin Globulin Albumin/Globulin Ratio Procalcitonin < 0.05 L Venous Blood Potassium 3.9 Urine Color Yellow Urine Appearance Turbid Urine pH 7.0 Ur Specific [place] 1.025 Urine Protein 30 H Urine Glucose (UA) Negative Urine Ketones Negative Urine Blood Large H Urine Nitrate Negative Urine Bilirubin Negative Urine Urobilinogen 1.0 H Ur Leukocyte Esterase Negative Urine RBC 0 - 2 Urine WBC 5 - 10 H Urine Bacteria Trace 08/10/18 08/10/18 06:00 06:00 WBC 4.9 RBC 3.66 Hgb 9.2 L Hct 29.9 L MCV 81.7 MCH 25.1 MCHC 30.8 L RDW 17.6 H Plt Count 353 MPV 8.1 Neut % (Auto) 63.8 Lymph % (Auto) 23.8 [place] % (Auto) 10.8 H Eos % (Auto) 1.4 L Baso % (Auto) 0.2 Lymph # (Auto) 1.2 [place] # (Auto) 0.5 Eos # (Auto) 0.1 Baso # (Auto) 0.01 Absolute Neuts (auto) 3.13 PT INR APTT pO2 VBG pH VBG pCO2 VBG HCO3 VBG Total CO2 VBG O2 Sat (Calc) VBG Base Excess VBG Potassium Glucose Lactate FiO2 Sodium 138 Potassium 4.3 Chloride 103 Carbon Dioxide 30 Anion Gap 9 L BUN 11 Creatinine 0.7 L Est GFR ( Amer) > 60 Est GFR (Non-Af Amer) > 60 Random Glucose 95 Calcium 9.1 Phosphorus 4.3 Magnesium 1.9 Total Bilirubin 0.3 AST 30 ALT 15 Alkaline Phosphatase 74 NT-Pro-B Natriuret Pep Total Protein 6.9 Albumin 3.4 Globulin 3.5 Albumin/Globulin Ratio 1.0 L Procalcitonin Venous Blood Potassium Urine Color Urine Appearance Urine pH Ur Specific [place] Urine Protein Urine Glucose (UA) Urine Ketones Urine Blood Urine Nitrate Urine Bilirubin Urine Urobilinogen Ur Leukocyte Esterase Urine RBC Urine WBC Urine Bacteria Attending/Attestation - Attestation I have personally seen and examined this patient.: Yes I have fully participated in the care of the patient.: Yes I have reviewed all pertinent clinical information: Yes Notes (Text): Patient seen and examined by me with resident at approximately 3:40PM on 08/09/18 in the emergency room. Case including HPI, physical exam, and assessment and plan discussed with resident. Agree with above with following additions/corrections. Patient is a 58-year-old male with past medical history significant for right- sided small cell lung cancer stage III per patient status post chemotherapy and radiation currently on immunotherapy, recurrent malignant right sided pleural effusion, chronic back pain, and COPD the presented to the emergency room for right-sided thoracic back pain. Patient states that the pain has been going on for some time. However, he states that the pain became worse on 08/07/2018. He states that the pain is localized to the right upper thoracic area and is constant in nature. States that is worsened with coughing. Patient tried heating pad without relief at home. He also tried his home Percocet with some relief. Says happened in the past and he has had 2 thoracentesis in the past. Patient states that he does have some shortness of breath with walking too much. He also has a mild nonproductive cough. Patient states that he coughs more when he takes in a deep breath. Patient is also unable to lie flat without coughing. Patient states that approximately 2 weeks ago he did see his primary care doctor for sore throat and took amoxicillin for approximately 4 days. The sore throat did resolve. Patient states that he does follow with his oncologist at [facility] in [place], last appointment was yesterday. Patient denies any fevers or chills. No chest pain or palpitations. No nausea, vomiting, or abdominal pain. Patient states that his appetite at home has improved. Patient denies any headaches, dizziness, or lightheadedness. No dysuria. No diarrhea or constipation. 12 point review of systems reviewed by me. Please see above HPI. All other systems negative. Physical exam: General: Awake and alert sitting up in bed in no acute distress. Cachectic appearing HEENT: Normocephalic, atraumatic. Extraocular muscles intact. Pupils equal and reactive, no scleral icterus. Oropharynx is pink and moist. No pharyngeal erythema or exudate appreciated. Neck is supple. Cardiovascular: Regular rhythm. Normal S1 and S2. No murmus, rubs, or gallops appreciated Pulmonary: Normal respiratory effort. No rhonci, rales, or wheezing appreciated. Gastrointestinal: Soft, nondistended. Nontender. Positive bowel sounds all 4 quadrants. No guarding. Musculoskeletal: Moves all extremities. No calf tenderness. No edema appreciated. positive tenderness along medial side of scapula. Central nervous system: AAO x3. CN2-12 grossly intact. Dermatologic: Skin warm and dry. Assessment and plan: Patient is a 58-year-old male with past medical history significant for right-sided small cell lung cancer stage III per patient status post chemotherapy and radiation currently on immunotherapy, recurrent malignant right sided pleural effusion, chronic back pain, and COPD the presented to the emergency room for right-sided thoracic back pain. 1. Large right pleural effusion. Recurrent. Likely malignant. CTA chest per radiologist showed sided pneumonia and large pleural effusion, no evidence of pulmonary embolism. IR consulted for thoracentesis. Placed on O2 via nasal cannula as needed. Keep head of bed elevated. 2. Right sided pneumonia. As seen on CTA chest. No leukocytosis. Afebrile. Procalcitonin pending. Blood cultures pending. ID recommendations appreciated. Placed on Vancomycin and Cefepime. 3. COPD. No acute exacerbation. Placed on nebulizer treatments, Brovana, and symbicort. 4. Anemia. Chronic. Likely secondary to malignancy. No signs of acute bleeding. Monitor CBC for now. 5. Stage 3 small cell lung cancer. Patient follows at [facility] in [place]. S/P chemo and radiation. Now on immunotherapy. Patient to continue to follow outpatient. 6. Chronic back pain. Continue home percocet as needed. 7. History of constipation. Continue home Colace. Case was discussed in detail with the patient and patient's at bedside regarding current diagnosis, study results, and treatment plan. All questions answered.
[2018-08-09] MEDS ORDERED: Levalbuterol 0.63 MG/3 ML Inhal Soln UD IH PRN (17:19)
[2018-08-09] MEDS ORDERED: Vancomycin 1gm in NS 250ml 1 GM/250 ML BAG IVPB SCH (17:30)
[2018-08-09] MEDS ORDERED: Cefepime 1gm in NS 100ml 1 GM/100 ML BAG IVPB SCH (17:30)
[2018-08-09] MEDS: Cefepime IV 2 gm in NS 2 GM/100 ML BAG IVPB SCH ×2 (19:25→21:28)
[2018-08-09] MEDS: Oxycodone/Acetaminophen 10/325 mg Tab PO PRN (20:02)
--- NOTE | 2018-08-09 20:10 | CP.PCM.CON ---
History of Present Illness - History of Present Illness History of Present Illness: Infectious Disease Consultation: August 09, 2018 58 y/o male with PMH of small cell lung cancer (diagnosed September 2017) with chemo/radiation/immunotherapy, recurrent pleural effusion who presents to the ED with 2 weeks h/o right mid-thoracic back pain, sharp, constant, 7-8/10, no radiation, increased with inspiration, relieved with percocet. It's different than his usual chronic lower back pain. Pain associated with SOB (for 3 weeks), ETIENNE, cough with blood tinged sputum, chest congestion. Patient denies associated fever, chills, mid-sternal pain, palpitations, hemoptysis. Patient states having URI 2 weeks ago, seen by his PMD and finished 4 day course of amoxicillin with symptoms improving. Patient had 3 hospital admission due to pulmonary effusion since diagnosis. Last admission on June/2018 with therapeutic thoracocentesis. He also noted small superficial lump in right thoracic area between scapula and vertebral spine x1 week. It's non tender, denied similar mass, denies h/o lipoma before. Patient is scheduled for PET scan at [facility] in [place] next week. Patient denies palpitations, headache, dizziness, recent weight loss, and leg swelling. ID called for possible pneumonia. PMHx: small cell lung cancer, recurrent pleural effusions. PSHx: placement of feeding tube now removed. Social Hx: 1/2 ppd x 20 years tobacco use No EtOH or illicit drug use Allergies: NKDA Active Medications Arformoterol Tartrate (Brovana) 15 mcg IH [id number] EMILY Budesonide (Pulmicort Respules) 0.5 mg IH [id number] EMILY Docusate Sodium (Colace) 100 mg PO BID EMILY Last Admin: 08/09/18 19:31 Dose: 100 mg Vancomycin HCl (Vancomycin 1gm) 1 gm in 250 mls @ 167 mls/hr IVPB Q12H EMILY; Protocol Cefepime HCl (Maxipime 2gm) 2 gm in 100 mls @ 100 mls/hr IVPB Q8 EMILY; Protocol Stop: 08/14/18 17:31 Last Admin: 08/09/18 19:25 Dose: Not Given Levalbuterol HCl (Xopenex) 0.63 mg IH TIDRESP EMILY Levalbuterol HCl (Xopenex) 0.63 mg IH [id number] PRN PRN Reason: Shortness of Breath Oxycodone/Acetaminophen (Percocet 10/325 Mg Tab) 1 tab PO Q8 PRN PRN Reason: Pain, severe (8-10) Pantoprazole Sodium (Protonix Ec Tab) 40 mg PO 0600 [facility] Family Hx: lung cancer in father HTN and [place] in mother ROS: No fevers, chills, nausea, vomiting, diarrhea, headaches, dizziness, chest pain, abdominal pain, melena, hematuria, hematemesis, hematochezia, depression, anxiety. Past Patient History - Infectious Disease Hx of Infectious Diseases: None - Past Social History Smoking Status: Former Smoker - CARDIAC Hx Cardiac Disorders: No - PULMONARY Hx Lung Cancer: Yes - NEUROLOGICAL Hx Neurological Disorder: No - HEENT Hx HEENT Problems: No - RENAL Hx Chronic Kidney Disease: No - ENDOCRINE/METABOLIC Hx Endocrine Disorders: No - HEMATOLOGICAL/ONCOLOGICAL Hx Blood Disorders: Yes Hx Cancer: Yes (lung Ca) Hx Chemotherapy: Yes - INTEGUMENTARY Hx Dermatological Problems: No - MUSCULOSKELETAL/RHEUMATOLOGICAL Hx Musculoskeletal Disorders: Yes Hx Falls: No Hx Herniated Disk: Yes - GASTROINTESTINAL Hx Gastrointestinal Disorders: Yes HX Swallowing Problems: Yes (with XRT) Other/Comment: feeding tube. PEG - GENITOURINARY/GYNECOLOGICAL Hx Genitourinary Disorders: No - PSYCHIATRIC Hx Psychophysiologic Disorder: No Hx Substance Use: Yes - SURGICAL HISTORY Other/Comment: Lung sx for BX Meds Allergies/Adverse Reactions: Allergies Allergy/AdvReac Type Severity Reaction Status Date / Time No Known Allergies Allergy Verified 08/09/18 10:30 - Medications Medications: Current Medications Arformoterol Tartrate (Brovana) 15 mcg IH [id number] [facility] Budesonide (Pulmicort Respules) 0.5 mg IH [id number] [facility] Docusate Sodium (Colace) 100 mg PO BID [facility] Last Admin: 08/09/18 19:31 Dose: 100 mg Vancomycin HCl (Vancomycin 1gm) 1 gm in 250 mls @ 167 mls/hr IVPB Q12H [facility]; Protocol Cefepime HCl (Maxipime 2gm) 2 gm in 100 mls @ 100 mls/hr IVPB Q8 [facility]; Protocol Stop: 08/14/18 17:31 Last Admin: 08/09/18 19:25 Dose: Not Given Levalbuterol HCl (Xopenex) 0.63 mg IH TIDRESP EMILY Levalbuterol HCl (Xopenex) 0.63 mg IH [id number] PRN PRN Reason: Shortness of Breath Oxycodone/Acetaminophen (Percocet 10/325 Mg Tab) 1 tab PO Q8 PRN PRN Reason: Pain, severe (8-10) Pantoprazole Sodium (Protonix Ec Tab) 40 mg PO 0600 EMILY Physical Exam - Constitutional Appears: Non-toxic, Cachectic, Chronically Ill - Head Exam Head Exam: ATRAUMATIC, NORMOCEPHALIC - Eye Exam Eye Exam: EOMI, PERRL Pupil Exam: NORMAL ACCOMODATION, PERRL - ENT Exam ENT Exam: Mucous Membranes Moist, Normal External Ear Exam, TM's Normal Bilaterally - Neck Exam Neck exam: Positive for: Full Rom, Normal Inspection - Respiratory Exam Respiratory Exam: Decreased Breath Sounds, Wheezes (right base worst. diffuse wheezing.) - Cardiovascular Exam Cardiovascular Exam: REGULAR RHYTHM, RRR, +S1, +S2 - GI/Abdominal Exam GI & Abdominal Exam: Normal Bowel Sounds, Soft. absent: Distended, Tenderness - Extremities Exam Extremities exam: Positive for: full ROM, normal inspection - Back Exam Additional comments: 1 cm superficial lump in right thoracic area between scapula and vertebral spine, non tender to palpation, no erythema, no wound noted - Neurological Exam Neurological exam: Alert, CN II-XII Intact, Oriented x3 - Skin Skin Exam: Intact, Normal Color Results - Vital Signs Recent Vital Signs: Last Vital Signs Temp 98.2 F 08/09/18 10:35 Pulse 110 H 08/09/18 16:23 Resp 18 08/09/18 16:23 BP 112/89 08/09/18 16:23 Pulse Ox 95 08/09/18 16:23 - Labs Result Diagrams: 08/09/18 10:50 08/09/18 10:50 Labs: Laboratory Results - last 24 hr 08/09/18 08/09/18 08/09/18 10:50 10:50 10:50 WBC 5.5 D RBC 3.61 Hgb 9.0 L Hct 29.7 L MCV 82.3 D MCH 24.9 L MCHC 30.3 L RDW 17.8 H Plt Count 365 MPV 8.4 Neut % (Auto) 67.9 Lymph % (Auto) 21.1 L [place] % (Auto) 8.3 H Eos % (Auto) 2.5 Baso % (Auto) 0.2 Lymph # (Auto) 1.2 [place] # (Auto) 0.5 Eos # (Auto) 0.1 Baso # (Auto) 0.01 Absolute Neuts (auto) 3.76 PT 13.5 H INR 1.19 APTT 32.5 pO2 VBG pH VBG pCO2 VBG HCO3 VBG Total CO2 VBG O2 Sat (Calc) VBG Base Excess VBG Potassium Glucose Lactate FiO2 Sodium 138 Potassium 3.8 Chloride 101 Carbon Dioxide 29 Anion Gap 11 BUN 11 Creatinine 0.7 L Est GFR ( Amer) > 60 Est GFR (Non-Af Amer) > 60 Random Glucose 139 H Calcium 9.1 Magnesium 1.9 NT-Pro-B Natriuret Pep 82.7 Venous Blood Potassium Urine Color Urine Appearance Urine pH Ur Specific [place] Urine Protein Urine Glucose (UA) Urine Ketones Urine Blood Urine Nitrate Urine Bilirubin Urine Urobilinogen Ur Leukocyte Esterase Urine RBC Urine WBC Urine Bacteria 08/09/18 08/09/18 12:00 12:40 WBC RBC Hgb Hct MCV MCH MCHC RDW Plt Count MPV Neut % (Auto) Lymph % (Auto) [place] % (Auto) Eos % (Auto) Baso % (Auto) Lymph # (Auto) [place] # (Auto) Eos # (Auto) Baso # (Auto) Absolute Neuts (auto) PT INR APTT pO2 43 VBG pH 7.43 VBG pCO2 47.0 VBG HCO3 31.2 H VBG Total CO2 32.6 H VBG O2 Sat (Calc) 79.5 H VBG Base Excess 5.8 H VBG Potassium 3.9 Glucose 94 Lactate 0.7 FiO2 21.0 Sodium 138.0 Potassium Chloride 104.0 Carbon Dioxide Anion Gap BUN Creatinine Est GFR ( Amer) Est GFR (Non-Af Amer) Random Glucose Calcium Magnesium NT-Pro-B Natriuret Pep Venous Blood Potassium 3.9 Urine Color Yellow Urine Appearance Turbid Urine pH 7.0 Ur Specific [place] 1.025 Urine Protein 30 H Urine Glucose (UA) Negative Urine Ketones Negative Urine Blood Large H Urine Nitrate Negative Urine Bilirubin Negative Urine Urobilinogen 1.0 H Ur Leukocyte Esterase Negative Urine RBC 0 - 2 Urine WBC 5 - 10 H Urine Bacteria Trace Assessment & Plan - Assessment and Plan (Free Text) Assessment: 58 yo male with history of small cell lung cancer presenting with right sided and thoracic back pain. CT scan showing right sided pleural effusion. Started on Cefepime and Vancomycin for antibiotic therapy. Obtain Procalcitonin. No leukocytosis. Supportive care. Serial Chest X-ray. Thank you for allowing me to participate in the care of the patient, we will follow with you.
[2018-08-09] MEDS: Budesonide 0.5 mg/2 ml Inhal Susp UD IH SCH (21:05)
[2018-08-09] MEDS: Arformoterol 15 mcg/2 ml Inh Sol IH SCH (21:05)
[2018-08-09] MEDS: Levalbuterol 0.63 MG/3 ML Inhal Soln UD IH SCH (21:05)
[2018-08-09] MEDS ORDERED: Fluticasone-Salmeterol 250-50mcg Diskus IH SCH (22:00)
[2018-08-09] MEDS ORDERED: Pneumococcal 23-Valent Vaccine IM ONE (22:57)
[2018-08-09] MEDS ORDERED: Piperacillin/Tazobact 3.375 gm 100 ML IVPB SCH (23:00)
[2018-08-10] MEDS: Pantoprazole 40 mg EC Tab PO SCH (06:21)
[2018-08-10] MEDS: Cefepime IV 2 gm in NS 2 GM/100 ML BAG IVPB SCH (06:21)
[2018-08-10] MEDS: Oxycodone/Acetaminophen 10/325 mg Tab PO PRN ×4 (06:21→21:49)
[2018-08-10 06:29] LABS: BASO # 0.01 K/mm3 (0.0-2.0); BASO % 0.2 % (0.0-3.0); EOS # 0.1 (0.0-0.7); EOS % 1.4 % (1.5-5.0); HEMOGLOBIN 9.2 g/dL (14.0-18.0); LYMPH # 1.2 (1.2-3.4); LYMPH % 23.8 % (22.0-35.0); MEAN CELL VOLUME 81.7 fl (80.0-105.0); MEAN CORPUSCULAR HEMOGLOBIN 25.1 pg (25.0-35.0); MEAN CORPUSCULAR HGB CONC 30.8 g/dl (31.0-37.0); MEAN PLATELET VOLUME 8.1 fl (7.0-11.0); MONO # 0.5 (0.1-0.6); MONO % 10.8 % (1.0-6.0); RBC 3.66 10^6/uL (3.5-6.1); RED CELL DISTRIBUTION WIDTH 17.6 % (11.5-14.5); WHITE BLOOD COUNT 4.9 10^3/uL (4.5-11.0)
[2018-08-10 06:44] LABS: ALBUMIN 3.4 g/dL (3.0-4.8); ALT/SGPT 15 U/L (7-56); AST/SGOT 30 U/L (17-59); BLOOD UREA NITROGEN 11 mg/dL (7-21); CALCIUM 9.1 mg/dL (8.4-10.5); GFR NON-AFRICAN AMERICAN > 60
[2018-08-10] MEDS: Arformoterol 15 mcg/2 ml Inh Sol IH SCH ×2 (07:58→20:30)
[2018-08-10] MEDS: Budesonide 0.5 mg/2 ml Inhal Susp UD IH SCH ×2 (07:58→20:30)
[2018-08-10] MEDS: Levalbuterol 0.63 MG/3 ML Inhal Soln UD IH SCH ×2 (07:59→13:31)
--- NOTE | 2018-08-10 10:29 | CARD ---
APPROVED REPORT Date of service: 08/09/2018 EKG Measurement Heart [id number] <Conclusion> Sinus tachycardia with occasional premature ventricular complexes Otherwise normal ECG
[2018-08-10] MEDS: Vancomycin 1gm in NS 250ml 1 GM/250 ML BAG IVPB SCH ×2 (11:14→21:39)
[2018-08-10] MEDS ORDERED: Oxycodone/Acetaminophen 10/325 mg Tab PO SCH (12:00)
--- NOTE | 2018-08-10 13:49 | CP.PCM.CON ---
History of Present Illness - History of Present Illness History of Present Illness: Thoracic Surgery Dr. Lazo 58 y/o M w/ PMHx of SCLC on immunotherapy presents to the ED c/o 3wks cough and back pain. Pt states that he has had chronic back pain for the past few years due to a "pinched nerve" and slipped disk in the upper back. However, the pain has been more severe over the past 3 weeks. It is localized to between his shoulder blades and is described as being a stabbing 10 out of 10 pain. Pain relieved by meds. The patient also reports 3 week history of dry cough and dyspnea on exertion. Pt admits to baseline SOB w/ acute worsening. He goes to [facility] for immunotherapy every Tuesday. In June, the patient was admitted for pneumonia with large pleural effusion. Pt has Hx of malignant pleural effusions, with this being his 3rd recurrence. In the past, pt has had thoracentesis. Pt admits to chronic paresthesia in L hand 2/2 back injury. Pt denies F/C, CP, palpitations, SOB at rest, N/V, D/C, urinary incontinence. CTC on admission shows extensive L pleural effusion w/ consolidation. Surgery consulted for possible VATS w/ pleurodesis vs pleurex catheter for recurrent malignant pleural effusions. PMHx: Stage IV Small cell lung cancer (2018) on immunotherapy Meds: reviewed in chart NKDA PSHx: Feeding tube (4 months ago), Biopsy x2 (2018) SHx: former smoker (quit 2017, 20 year 1/2 PPD), former drinker (quit 10-12 years ago), rare marijuana use FHx: Father (Lung cancer); Mother (HTN, PA) Review of Systems - Review of Systems All systems: reviewed and no additional remarkable complaints except (see HPI) Past Patient History - Infectious Disease Hx of Infectious Diseases: None - Past Social History Smoking Status: Former Smoker - CARDIAC Hx Cardiac Disorders: No - PULMONARY Hx Respiratory Disorders: Yes (lung ca dx 11/2017) Hx Pneumonia: Yes - NEUROLOGICAL Hx Neurological Disorder: No - HEENT Hx HEENT Problems: No - RENAL Hx Chronic Kidney Disease: No - ENDOCRINE/METABOLIC Hx Endocrine Disorders: No - HEMATOLOGICAL/ONCOLOGICAL Hx Blood Disorders: Yes Hx Anemia: Yes Hx Cancer: Yes (lung Ca dx 11/2017) Hx Chemotherapy: Yes (and radiation) Other/Comment: presently taking immunotherapy every tuesday - INTEGUMENTARY Hx Dermatological Problems: Yes Other/Comment: dry skin ble and feet - MUSCULOSKELETAL/RHEUMATOLOGICAL Hx Falls: No - GASTROINTESTINAL Hx Gastrointestinal Disorders: Yes HX Swallowing Problems: Yes (with XRT) Other/Comment: due to radiation treatment pt had difficulty swallowing requiring a peg tube which has since been removed - GENITOURINARY/GYNECOLOGICAL Hx Genitourinary Disorders: No - PSYCHIATRIC Hx Substance Use: (denies) - SURGICAL HISTORY Hx Surgeries: Yes Other/Comment: lung bx, r thoracenthesis 06/08/18 Meds Allergies/Adverse Reactions: Allergies Allergy/AdvReac Type Severity Reaction Status Date / Time No Known Allergies Allergy Verified 08/09/18 10:30 - Medications Medications: Current Medications Arformoterol Tartrate (Brovana) 15 mcg IH [id number] [facility] Last Admin: 08/10/18 07:58 Dose: 15 mcg Budesonide (Pulmicort Respules) 0.5 mg IH [id number] EMILY Last Admin: 08/10/18 07:58 Dose: 0.5 mg Docusate Sodium (Colace) 100 mg PO BID [facility] Last Admin: 08/10/18 11:14 Dose: 100 mg Vancomycin HCl (Vancomycin 1gm) 1 gm in 250 mls @ 167 mls/hr IVPB Q12 EMILY; Protocol Last Admin: 08/10/18 11:14 Dose: 167 mls/hr Cefepime HCl (Maxipime 2gm) 2 gm in 100 mls @ 100 mls/hr IVPB Q8 EMILY; Protocol Stop: 08/14/18 17:31 Last Admin: 08/10/18 06:21 Dose: 100 mls/hr Levalbuterol HCl (Xopenex) 0.63 mg IH TIDRESP EMILY Last Admin: 08/10/18 13:31 Dose: 0.63 mg Levalbuterol HCl (Xopenex) 0.63 mg IH [id number] PRN PRN Reason: Shortness of Breath Oxycodone/Acetaminophen (Percocet 10/325 Mg Tab) 1 tab PO Q4 PRN PRN Reason: Pain, severe (8-10) Last Admin: 08/10/18 12:15 Dose: 1 tab Pantoprazole Sodium (Protonix Ec Tab) 40 mg PO 0600 EMILY Last Admin: 08/10/18 06:21 Dose: 40 mg Physical Exam - Constitutional Appears: Non-toxic, No Acute Distress, Cachectic - Head Exam Head Exam: NORMAL INSPECTION - Eye Exam Eye Exam: Normal appearance - ENT Exam ENT Exam: Mucous Membranes Moist - Respiratory Exam Respiratory Exam: Decreased Breath Sounds (R-sided), NORMAL BREATHING PATTERN. absent: Respiratory Distress - Cardiovascular Exam Cardiovascular Exam: absent: Bradycardia, Tachycardia - GI/Abdominal Exam GI & Abdominal Exam: Soft. absent: Distended, Tenderness - Extremities Exam Extremities exam: Positive for: normal inspection - Neurological Exam Neurological exam: Alert, Oriented x3 - Psychiatric Exam Psychiatric exam: Normal Affect, Normal Mood - Skin Skin Exam: Dry, Intact, Normal Color, Warm Results - Vital Signs Recent Vital Signs: Last Vital Signs Temp 98.4 F 08/10/18 06:00 Pulse 96 H 08/10/18 06:00 Resp 20 08/10/18 06:00 BP 116/77 08/10/18 06:00 Pulse Ox 95 08/10/18 06:00 - Labs Result Diagrams: 08/10/18 06:00 08/10/18 06:00 Labs: Laboratory Results - last 24 hr 08/09/18 08/10/18 08/10/18 17:00 06:00 06:00 WBC 4.9 RBC 3.66 Hgb 9.2 L Hct 29.9 L MCV 81.7 MCH 25.1 MCHC 30.8 L RDW 17.6 H Plt Count 353 MPV 8.1 Neut % (Auto) 63.8 Lymph % (Auto) 23.8 [place] % (Auto) 10.8 H Eos % (Auto) 1.4 L Baso % (Auto) 0.2 Lymph # (Auto) 1.2 [place] # (Auto) 0.5 Eos # (Auto) 0.1 Baso # (Auto) 0.01 Absolute Neuts (auto) 3.13 Sodium 138 Potassium 4.3 Chloride 103 Carbon Dioxide 30 Anion Gap 9 L BUN 11 Creatinine 0.7 L Est GFR ( Amer) > 60 Est GFR (Non-Af Amer) > 60 Random Glucose 95 Calcium 9.1 Phosphorus 4.3 Magnesium 1.9 Total Bilirubin 0.3 AST 30 ALT 15 Alkaline Phosphatase 74 Total Protein 6.9 Albumin 3.4 Globulin 3.5 Albumin/Globulin Ratio 1.0 L Procalcitonin < 0.05 L - Imaging and Cardiology CT scan - chest Status: Image reviewed by me, Report reviewed by me Assessment & Plan - Assessment and Plan (Free Text) Assessment: 58 y/o M w/ Stage IV SCLC and recurrent malignant pleural effusions requiring thoracentesis. Plan: - pt currently refusing any surgical intervention, agreeable only to thoracentesis by IR - cont serial thoracentesis PRN - cont medical management - no surgical intervention at this time - Please reconsult if pt agreeable in the future Pt discussed w/ Dr. Clifton Cotto PGY3
--- NOTE | 2018-08-10 14:57 | CP.PCM.CON ---
History of Present Illness - History of Present Illness History of Present Illness: Brief pulmonary consult note Called regarding Mr Jon who is a 58-year-old male with SCLC s/o chemo currently on immunotherapy, recurrent with recurrent malignant right sided pleural effusion. Has had 2 thoracentesis in the past. Currently has some shortness of breath and recurrence of right effusion. I was asked if thorac entesis would be appropriate however given his recurrenrt malignant effusion the next step would be Pleur-X placement. I advised the team to call IR, which they did and patient will have Pleur-X placed tomorrow. Please re-call if patient worsening with SOB or shows signs of sepsis which would warrant urgent drainage. Carmelo Smyth MD Pulmonary Attending Past Patient History - Infectious Disease Hx of Infectious Diseases: None - Past Social History Smoking Status: Former Smoker - CARDIAC Hx Cardiac Disorders: No - PULMONARY Hx Respiratory Disorders: Yes (lung ca dx 11/2017) Hx Pneumonia: Yes - NEUROLOGICAL Hx Neurological Disorder: No - HEENT Hx HEENT Problems: No - RENAL Hx Chronic Kidney Disease: No - ENDOCRINE/METABOLIC Hx Endocrine Disorders: No - HEMATOLOGICAL/ONCOLOGICAL Hx Blood Disorders: Yes Hx Anemia: Yes Hx Cancer: Yes (lung Ca dx 11/2017) Hx Chemotherapy: Yes (and radiation) Other/Comment: presently taking immunotherapy every tuesday - INTEGUMENTARY Hx Dermatological Problems: Yes Other/Comment: dry skin ble and feet - MUSCULOSKELETAL/RHEUMATOLOGICAL Hx Falls: No - GASTROINTESTINAL Hx Gastrointestinal Disorders: Yes HX Swallowing Problems: Yes (with XRT) Other/Comment: due to radiation treatment pt had difficulty swallowing requiring a peg tube which has since been removed - GENITOURINARY/GYNECOLOGICAL Hx Genitourinary Disorders: No - PSYCHIATRIC Hx Substance Use: (denies) - SURGICAL HISTORY Hx Surgeries: Yes Other/Comment: lung bx, r thoracenthesis 06/08/18 Meds Allergies/Adverse Reactions: Allergies Allergy/AdvReac Type Severity Reaction Status Date / Time No Known Allergies Allergy Verified 08/09/18 10:30 - Medications Medications: Current Medications Arformoterol Tartrate (Brovana) 15 mcg IH [id number] EMILY Last Admin: 08/10/18 07:58 Dose: 15 mcg Budesonide (Pulmicort Respules) 0.5 mg IH [id number] EMILY Last Admin: 08/10/18 07:58 Dose: 0.5 mg Docusate Sodium (Colace) 100 mg PO BID [facility] Last Admin: 08/10/18 11:14 Dose: 100 mg Vancomycin HCl (Vancomycin 1gm) 1 gm in 250 mls @ 167 mls/hr IVPB Q12 EMILY; Protocol Last Admin: 08/10/18 11:14 Dose: 167 mls/hr Cefepime HCl (Maxipime 1gm) 1 gm in 100 mls @ 100 mls/hr IVPB Q8 EMILY; Protocol Levalbuterol HCl (Xopenex) 0.63 mg IH TIDRESP EMILY Last Admin: 08/10/18 13:31 Dose: 0.63 mg Levalbuterol HCl (Xopenex) 0.63 mg IH [id number] PRN PRN Reason: Shortness of Breath Oxycodone/Acetaminophen (Percocet 10/325 Mg Tab) 1 tab PO Q4 PRN PRN Reason: Pain, severe (8-10) Last Admin: 08/10/18 12:15 Dose: 1 tab Pantoprazole Sodium (Protonix Ec Tab) 40 mg PO 0600 [facility] Last Admin: 08/10/18 06:21 Dose: 40 mg Results - Vital Signs Recent Vital Signs: Last Vital Signs Temp 98.4 F 08/10/18 06:00 Pulse 96 H 08/10/18 06:00 Resp 20 08/10/18 06:00 BP 116/77 08/10/18 06:00 Pulse Ox 95 08/10/18 06:00 - Labs Result Diagrams: 08/10/18 06:00 08/10/18 06:00 Labs: Laboratory Results - last 24 hr 08/09/18 08/10/18 08/10/18 17:00 06:00 06:00 WBC 4.9 RBC 3.66 Hgb 9.2 L Hct 29.9 L MCV 81.7 MCH 25.1 MCHC 30.8 L RDW 17.6 H Plt Count 353 MPV 8.1 Neut % (Auto) 63.8 Lymph % (Auto) 23.8 [place] % (Auto) 10.8 H Eos % (Auto) 1.4 L Baso % (Auto) 0.2 Lymph # (Auto) 1.2 [place] # (Auto) 0.5 Eos # (Auto) 0.1 Baso # (Auto) 0.01 Absolute Neuts (auto) 3.13 Sodium 138 Potassium 4.3 Chloride 103 Carbon Dioxide 30 Anion Gap 9 L BUN 11 Creatinine 0.7 L Est GFR ( Amer) > 60 Est GFR (Non-Af Amer) > 60 Random Glucose 95 Calcium 9.1 Phosphorus 4.3 Magnesium 1.9 Total Bilirubin 0.3 AST 30 ALT 15 Alkaline Phosphatase 74 Total Protein 6.9 Albumin 3.4 Globulin 3.5 Albumin/Globulin Ratio 1.0 L Procalcitonin < 0.05 L
--- NOTE | 2018-08-10 17:56 | CP.PCM.PN ---
<Moreno Sweeney - Last Filed: 08/10/18 17:53> Subjective - Date & Time of Evaluation Date of Evaluation: 08/10/18 Time of Evaluation: 07:50 - Subjective Subjective: Moreno Sweeney DO PGY1 Hospitalist Progress Note for Dr Weston Patient seen and examined at bedside. SOB improvingwith bronchodiators, only occurs with exertion. Pain is controlled with percocet prn. Did not have bowel movement last night. Denies palpitations, GRAY, chest pain. No acute events overnight Objective - Vital Signs/Intake and Output Vital Signs (last 24 hours): Temp Pulse Resp BP Pulse Ox 98.5 F 100 H 20 117/78 100 08/10/18 16:52 08/10/18 16:52 08/10/18 16:52 08/10/18 16:52 08/10/18 16:52 Intake and Output: 08/10/18 08/10/18 06:59 18:59 Intake Total 720 Balance 720 - Medications Medications: Current Medications Arformoterol Tartrate (Brovana) 15 mcg IH [id number] KARTHIK Last Admin: 08/10/18 07:58 Dose: 15 mcg Budesonide (Pulmicort Respules) 0.5 mg IH [id number] AKRTHIK Last Admin: 08/10/18 07:58 Dose: 0.5 mg Docusate Sodium (Colace) 100 mg PO BID [facility]THIK Last Admin: 08/10/18 17:25 Dose: 100 mg Vancomycin HCl (Vancomycin 1gm) 1 gm in 250 mls @ 167 mls/hr IVPB Q12 KARTHIK; Protocol Last Admin: 08/10/18 11:14 Dose: 167 mls/hr Cefepime HCl (Maxipime 1gm) 1 gm in 100 mls @ 100 mls/hr IVPB Q8 KARTHIK; Protocol Levalbuterol HCl (Xopenex) 0.63 mg IH TIDRESP KARTHIK Last Admin: 08/10/18 13:31 Dose: 0.63 mg Levalbuterol HCl (Xopenex) 0.63 mg IH [id number] PRN PRN Reason: Shortness of Breath Oxycodone/Acetaminophen (Percocet 10/325 Mg Tab) 1 tab PO Q4 PRN PRN Reason: Pain, severe (8-10) Last Admin: 08/10/18 17:25 Dose: 1 tab Pantoprazole Sodium (Protonix Ec Tab) 40 mg PO 0600 KARTHIK Last Admin: 08/10/18 06:21 Dose: 40 mg - Labs Labs: 08/10/18 06:00 08/10/18 06:00 PT 13.5 SECONDS (9.4-12.5) H 08/09/18 10:50 INR 1.19 08/09/18 10:50 APTT 32.5 Seconds (26.9-38.3) 08/09/18 10:50 - Additional Findings Additional findings: - Constitutional Appears: Well, Non-toxic, Cachectic - Head Exam Head Exam: ATRAUMATIC, NORMAL INSPECTION, NORMOCEPHALIC - Eye Exam Eye Exam: EOMI, Normal appearance, PERRL Pupil Exam: NORMAL ACCOMODATION, PERRL - ENT Exam ENT Exam: Mucous Membranes Moist, Normal Exam - Neck Exam Neck exam: Positive for: Normal Inspection - Respiratory Exam Respiratory Exam: Decreased Breath Sounds (on Right lower lobe), Wheezes (diffuse b/l). absent: Chest Wall Tenderness, Rales, Rhonchi, Respiratory Distress, Stridor - Cardiovascular Exam Cardiovascular Exam: Tachycardia, REGULAR RHYTHM, +S1, +S2. absent: Gallop, JVD, Rubs - GI/Abdominal Exam GI & Abdominal Exam: Normal Bowel Sounds, Soft. absent: Tenderness - Extremities Exam Extremities exam: Positive for: normal capillary refill, normal inspection, pedal pulses present. Negative for: tenderness - Back Exam Back exam: absent: CVA tenderness (L), CVA tenderness (R) Additional comments: 1 cm superficial lump in right thoracic area between scapula and vertebral spine, non tender to palpation, no erythema, no wound noted - Neurological Exam Neurological exam: Alert, CN II-XII Intact, Oriented x3, Reflexes Normal - Psychiatric Exam Psychiatric exam: Normal Affect, Normal Mood - Skin Skin Exam: Dry, Intact, Normal Color, Warm Assessment and Plan - Assessment and Plan (Free Text) Assessment: 58 y/o male with PMH of small cell lung cancer (diagnosed September 2017) with chemo/radiation/immunotherapy who presents to the ED with 2 weeks h/o right mid- thoracic back pain. CT chest consistent with large right pleural effusion and PNA. Plan: Large R-Pleural Effusion in the setting of small cell lung cancer: -patient with recurrent effusion and subsequent thoracocentesis, last on 06/2018 -CT chest: large right sided pleural effusion and right sided PNA -O2 NC prn -bed elevation >30 degrees -IR consulted Dr Lilly, thoracentesis tomorrow -Surgery consulted for pleurodesis, patient refused any surgical intervention/catheter placement Pneumina: -continue vanc, cefepime as per ID -no leukocytosis, afebrile, low procal -blood/sputum Cx, NGTD -VB.43/47/43. lactate 0.7 -incentive spirometry -ID on board, Dr Conde Chronic bronchitis/COPD/ ex-smoker: -started xopenex prn/karthik Anemia: -likely due to chronic disease -H/H stable (baseline compared to last admission) -continue to monitor, transfuse prn Lower back pain: -continue home med percocet 10/325 prn q8h Chronic constipation: -likely due to opiate use -continue home colace bid PPX: DVT: SCD GI: protonix Regular diet PT Case reviewed and plan discussed with attending Dr Enrico Sweeney, DO <Mariel Weston R - Last Filed: 08/11/18 18:20> Objective - Vital Signs/Intake and Output Vital Signs (last 24 hours): Temp Pulse Resp BP Pulse Ox 98.7 F 96 H 18 116/69 93 L 08/11/18 08:36 08/11/18 08:36 08/11/18 08:36 08/11/18 08:36 08/11/18 08:36 - Medications Medications: Current Medications Arformoterol Tartrate (Brovana) 15 mcg IH [id number] [facility] Last Admin: 08/11/18 08:25 Dose: 15 mcg Budesonide (Pulmicort Respules) 0.5 mg IH [id number] [facility] Last Admin: 08/11/18 08:25 Dose: 0.5 mg Docusate Sodium (Colace) 100 mg PO BID [facility] Last Admin: 08/11/18 09:54 Dose: 100 mg Vancomycin HCl (Vancomycin 1gm) 1 gm in 250 mls @ 167 mls/hr IVPB Q12 KARTHIK; Protocol Last Admin: 08/11/18 09:55 Dose: 167 mls/hr Cefepime HCl (Maxipime 1gm) 1 gm in 100 mls @ 100 mls/hr IVPB Q8 KARTHIK; Protocol Last Admin: 08/11/18 13:33 Dose: 100 mls/hr Levalbuterol HCl (Xopenex) 0.63 mg IH TIDRESP KARTHIK Last Admin: 08/11/18 14:25 Dose: 0.63 mg Levalbuterol HCl (Xopenex) 0.63 mg IH [id number] PRN PRN Reason: Shortness of Breath Ondansetron HCl (Zofran Inj) 4 mg IVP Q6H PRN PRN Reason: Nausea/Vomiting Last Admin: 08/11/18 09:55 Dose: 4 mg Oxycodone/Acetaminophen (Percocet 10/325 Mg Tab) 1 tab PO Q4 PRN PRN Reason: Pain, severe (8-10) Last Admin: 08/11/18 13:34 Dose: 1 tab Pantoprazole Sodium (Protonix Ec Tab) 40 mg PO 0600 KARTHIK Last Admin: 08/11/18 05:35 Dose: 40 mg - Labs Labs: 08/11/18 06:15 08/11/18 06:15 PT 13.5 SECONDS (9.4-12.5) H 08/09/18 10:50 INR 1.19 08/09/18 10:50 APTT 32.5 Seconds (26.9-38.3) 08/09/18 10:50 Attending/Attestation - Attestation I have personally seen and examined this patient.: Yes I have fully participated in the care of the patient.: Yes I have reviewed all pertinent clinical information, including history, physical exam and plan: Yes Notes (Text): Patient seen and examined by me with resident at approximately 9:40PM on 08/10/18. Case including HPI, physical exam, and assessment and plan discussed with resident. Agree with above with following additions/corrections. Patient is a 58-year-old male with past medical history significant for right- sided small cell lung cancer stage III per patient status post chemotherapy and radiation currently on immunotherapy, recurrent malignant right sided pleural effusion, chronic back pain, and COPD the presented to the emergency room for right-sided thoracic back pain. Patient states he is not feeling that great. States that percocet every 8 hours is not really helping. Still with right sided back pain. Patient walked with physical therapy and stated he feels short of breath after ambulation. Cough is improving. Denies chest pain or palpitations. No nausea, vomiting, or abdominal pain. No headaches or dizziness. No fevers or chills. No dysuria. Physical exam: General: Awake and alert sitting up in bed in no acute distress. Cachectic appearing HEENT: Normocephalic, atraumatic. Extraocular muscles intact. Pupils equal and reactive, no scleral icterus. Oropharynx is pink and moist. No pharyngeal erythema or exudate appreciated. Neck is supple. Cardiovascular: Regular rhythm. Normal S1 and S2. No murmus, rubs, or gallops appreciated Pulmonary: Normal respiratory effort. Decreased breath sounds, more prominent on right. No rhonchi, rales, or wheezing appreciated. Gastrointestinal: Soft, nondistended. Nontender. Positive bowel sounds all 4 quadrants. No guarding. Musculoskeletal: Moves all extremities. No calf tenderness. No edema appreciated. Positive tenderness along medial side of scapula. Central nervous system: AAO x3. CN2-12 grossly intact. Dermatologic: Skin warm and dry. Assessment and plan: Patient is a 58-year-old male with past medical history significant for right-sided small cell lung cancer stage III per patient status post chemotherapy and radiation currently on immunotherapy, recurrent malignant right sided pleural effusion, chronic back pain, and COPD the presented to the emergency room for right-sided thoracic back pain. 1. Large right pleural effusion. Recurrent. Likely malignant. IR consulted for thoracentesis, likely tomorrow. Continue O2 via nasal cannula. Continue nebulizer treatments as tolerated. Surgery cosnulted as requested by IR for possible need for VATS. Patient refusing surgical procedure here. Also does not want pleurx cath placed here. CTA chest per radiologist showed sided pneumonia and large pleural effusion, no evidence of pulmonary embolism. 2. Right sided pneumonia. As seen on CTA chest. No leukocytosis. Afebrile. Procalcitonin <0.05. Blood cultures with no growth to day. ID recommendations appreciated. Continue Vancomycin and Cefepime. 3. COPD. No acute exacerbation. Continue nebulizer treatments, Brovana, and symbicort. 4. Anemia. Chronic. Likely secondary to malignancy. No signs of acute bleeding. H&H stable. Continue to monitor. 5. Stage 3 small cell lung cancer. Patient follows at [facility] in [place]. S/P chemo and radiation. Now on immunotherapy. Patient to continue to follow outpatient. 6. Chronic back pain. Continue home percocet as needed. 7. History of constipation. Continue home Colace. Case was discussed in detail with the patient regarding current diagnosis, study results, and treatment plan. All questions answered.
--- NOTE | 2018-08-10 19:01 | CP.PCM.PN ---
Subjective - Date & Time of Evaluation Date of Evaluation: 08/10/18 Time of Evaluation: 17:45 - Subjective Subjective: Infectious Disease Follow Up: August 10, 2018 58 y/o male with PMH of small cell lung cancer (diagnosed September 2017) with chemo/radiation/immunotherapy, recurrent pleural effusion who presents to the ED with 2 weeks h/o right mid-thoracic back pain, sharp, constant, 7-8/10, no radiation, increased with inspiration, relieved with percocet. It's different than his usual chronic lower back pain. Pain associated with SOB (for 3 weeks), ETIENNE, cough with blood tinged sputum, chest congestion. Patient denies associated fever, chills, mid-sternal pain, palpitations, hemoptysis. Patient states having URI 2 weeks ago, seen by his PMD and finished 4 day course of amoxicillin with symptoms improving. Patient had 3 hospital admission due to pulmonary effusion since diagnosis. Last admission on June/2018 with therapeutic thoracocentesis. He also noted small superficial lump in right thoracic area between scapula and vertebral spine x1 week. It's non tender, denied similar mass, denies h/o lipoma before. Patient is scheduled for PET scan at [facility] in [place] next week. Patient denies palpitations, headache, dizziness, recent weight loss, and leg swelling. ID called for possible pneumonia. Procalcitonin was <0.05. CT chest showing large pleural effusion and possible right sided pneumonia. The patient states that he is feeling better. Objective - Vital Signs/Intake and Output Vital Signs (last 24 hours): Temp Pulse Resp BP Pulse Ox 98.5 F 95 H 20 117/78 100 08/10/18 16:52 08/10/18 18:00 08/10/18 16:52 08/10/18 16:52 08/10/18 16:52 Intake and Output: 08/10/18 08/10/18 06:59 18:59 Intake Total 720 100 Balance 720 100 - Medications Medications: Current Medications Arformoterol Tartrate (Brovana) 15 mcg IH [id number] [facility] Last Admin: 08/10/18 07:58 Dose: 15 mcg Budesonide (Pulmicort Respules) 0.5 mg IH [id number] [facility] Last Admin: 08/10/18 07:58 Dose: 0.5 mg Docusate Sodium (Colace) 100 mg PO BID [facility] Last Admin: 08/10/18 17:25 Dose: 100 mg Vancomycin HCl (Vancomycin 1gm) 1 gm in 250 mls @ 167 mls/hr IVPB Q12 [facility]; Protocol Last Admin: 08/10/18 11:14 Dose: 167 mls/hr Cefepime HCl (Maxipime 1gm) 1 gm in 100 mls @ 100 mls/hr IVPB Q8 [facility]ILY; Protocol Levalbuterol HCl (Xopenex) 0.63 mg IH TIDRESP [facility] Last Admin: 08/10/18 13:31 Dose: 0.63 mg Levalbuterol HCl (Xopenex) 0.63 mg IH [id number] PRN PRN Reason: Shortness of Breath Oxycodone/Acetaminophen (Percocet 10/325 Mg Tab) 1 tab PO Q4 PRN PRN Reason: Pain, severe (8-10) Last Admin: 08/10/18 17:25 Dose: 1 tab Pantoprazole Sodium (Protonix Ec Tab) 40 mg PO 0600 [facility] Last Admin: 08/10/18 06:21 Dose: 40 mg - Labs Labs: 08/10/18 06:00 08/10/18 06:00 PT 13.5 SECONDS (9.4-12.5) H 08/09/18 10:50 INR 1.19 08/09/18 10:50 APTT 32.5 Seconds (26.9-38.3) 08/09/18 10:50 - Constitutional Appears: Non-toxic, Cachectic, Chronically Ill - Head Exam Head Exam: ATRAUMATIC, NORMOCEPHALIC - Eye Exam Eye Exam: EOMI, PERRL Pupil Exam: NORMAL ACCOMODATION, PERRL - ENT Exam ENT Exam: Mucous Membranes Moist, Normal External Ear Exam, TM's Normal Bilaterally - Neck Exam Neck Exam: Full ROM, Normal Inspection - Respiratory Exam Respiratory Exam: Decreased Breath Sounds, Wheezes - Cardiovascular Exam Cardiovascular Exam: REGULAR RHYTHM, RRR, +S1, +S2 - GI/Abdominal Exam GI & Abdominal Exam: Soft, Normal Bowel Sounds. absent: Distended, Tenderness - Extremities Exam Extremities Exam: Full ROM, Normal Inspection - Back Exam Additional comments: 1 cm superficial lump in right thoracic area between scapula and vertebral spine, non tender to palpation, no erythema, no wound noted - Neurological Exam Neurological Exam: Alert, Awake, CN II-XII Intact, Oriented x3 - Psychiatric Exam Psychiatric exam: Normal Affect, Normal Mood - Skin Skin Exam: Intact, Normal Color Assessment and Plan - Assessment and Plan (Free Text) Assessment: 58 yo male with history of small cell lung cancer presenting with right sided and thoracic back pain. CT scan showing right sided pleural effusion. Started on Cefepime and Vancomycin for antibiotic therapy. Obtain Procalcitonin... value less than <0.05. No leukocytosis. Supportive care. CT scan showing large right sided pleural effusion and possible right sided pneumonia. Remains on Cefepime and IV Vancomycin. Serial Chest X-ray. Thank you for allowing me to participate in the care of the patient, we will follow with you.
[2018-08-10] MEDS: Cefepime 1gm in NS 100ml 1 GM/100 ML BAG IVPB SCH (21:40)
[2018-08-11] MEDS: Oxycodone/Acetaminophen 10/325 mg Tab PO PRN ×4 (03:24→18:33)
[2018-08-11] MEDS: Pantoprazole 40 mg EC Tab PO SCH (05:35)
[2018-08-11] MEDS: Cefepime 1gm in NS 100ml 1 GM/100 ML BAG IVPB SCH ×3 (05:35→21:23)
[2018-08-11 06:38] LABS: BASO # 0.01 K/mm3 (0.0-2.0); BASO % 0.2 % (0.0-3.0); EOS # 0.1 (0.0-0.7); EOS % 1.7 % (1.5-5.0); HEMOGLOBIN 9.6 g/dL (14.0-18.0); LYMPH # 1.1 (1.2-3.4); LYMPH % 22.2 % (22.0-35.0); MEAN CELL VOLUME 81.3 fl (80.0-105.0); MEAN CORPUSCULAR HGB CONC 30.8 g/dl (31.0-37.0); MEAN PLATELET VOLUME 8.2 fl (7.0-11.0); MONO # 0.5 (0.1-0.6); MONO % 10.5 % (1.0-6.0); RBC 3.84 10^6/uL (3.5-6.1); RED CELL DISTRIBUTION WIDTH 17.5 % (11.5-14.5); WHITE BLOOD COUNT 4.7 10^3/uL (4.5-11.0)
--- NOTE | 2018-08-11 06:56 | CP.PCM.PN ---
<Moreno Sweeney - Last Filed: 08/11/18 14:47> Subjective - Date & Time of Evaluation Date of Evaluation: 08/11/18 Time of Evaluation: 06:20 - Subjective Subjective: Moreno Sweeney DO PGY1 Hospitalist Progress Note for Dr Weston Patient seen and examined at bedside. Back pain is controlled with percocet prn. SOB improving with bronchodiators. Did not have bowel movement last night. Denies palpitations, GRAY, chest pain. No acute events overnight Objective - Vital Signs/Intake and Output Vital Signs (last 24 hours): Temp Pulse Resp BP Pulse Ox 98.5 F 95 H 20 117/78 100 08/10/18 16:52 08/10/18 18:00 08/10/18 16:52 08/10/18 16:52 08/10/18 16:52 Intake and Output: 08/10/18 08/11/18 18:59 06:59 Intake Total 100 Balance 100 - Medications Medications: Current Medications Arformoterol Tartrate (Brovana) 15 mcg IH [id number] [facility] Last Admin: 08/10/18 20:30 Dose: 15 mcg Budesonide (Pulmicort Respules) 0.5 mg IH [id number] [facility] Last Admin: 08/10/18 20:30 Dose: 0.5 mg Docusate Sodium (Colace) 100 mg PO BID [facility] Last Admin: 08/10/18 17:25 Dose: 100 mg Vancomycin HCl (Vancomycin 1gm) 1 gm in 250 mls @ 167 mls/hr IVPB Q12 EMILY; Protocol Last Admin: 08/10/18 21:39 Dose: 167 mls/hr Cefepime HCl (Maxipime 1gm) 1 gm in 100 mls @ 100 mls/hr IVPB Q8 EMILY; Protocol Last Admin: 08/11/18 05:35 Dose: 100 mls/hr Levalbuterol HCl (Xopenex) 0.63 mg IH TIDRESP [facility] Last Admin: 08/10/18 13:31 Dose: 0.63 mg Levalbuterol HCl (Xopenex) 0.63 mg IH [id number] PRN PRN Reason: Shortness of Breath Oxycodone/Acetaminophen (Percocet 10/325 Mg Tab) 1 tab PO Q4 PRN PRN Reason: Pain, severe (8-10) Last Admin: 08/11/18 03:24 Dose: 1 tab Pantoprazole Sodium (Protonix Ec Tab) 40 mg PO 0600 [facility] Last Admin: 08/11/18 05:35 Dose: 40 mg - Labs Labs: 08/11/18 06:15 08/10/18 06:00 PT 13.5 SECONDS (9.4-12.5) H 08/09/18 10:50 INR 1.19 08/09/18 10:50 APTT 32.5 Seconds (26.9-38.3) 08/09/18 10:50 - Additional Findings Additional findings: - Constitutional Appears: Well, Non-toxic, Cachectic - Head Exam Head Exam: ATRAUMATIC, NORMAL INSPECTION, NORMOCEPHALIC - Eye Exam Eye Exam: EOMI, Normal appearance, PERRL Pupil Exam: NORMAL ACCOMODATION, PERRL - ENT Exam ENT Exam: Mucous Membranes Moist, Normal Exam - Neck Exam Neck exam: Positive for: Normal Inspection - Respiratory Exam Respiratory Exam: Decreased Breath Sounds (on Right lower lobe), Wheezes (diffuse b/l). absent: Chest Wall Tenderness, Rales, Rhonchi, Respiratory Distress, Stridor - Cardiovascular Exam Cardiovascular Exam: Tachycardia, REGULAR RHYTHM, +S1, +S2. absent: Gallop, JVD, Rubs - GI/Abdominal Exam GI & Abdominal Exam: Normal Bowel Sounds, Soft. absent: Tenderness - Extremities Exam Extremities exam: Positive for: normal capillary refill, normal inspection, pedal pulses present. Negative for: tenderness - Back Exam Back exam: absent: CVA tenderness (L), CVA tenderness (R) Additional comments: 1 cm superficial lump in right thoracic area between scapula and vertebral spine, non tender to palpation, no erythema, no wound noted - Neurological Exam Neurological exam: Alert, CN II-XII Intact, Oriented x3, Reflexes Normal - Psychiatric Exam Psychiatric exam: Normal Affect, Normal Mood - Skin Skin Exam: Dry, Intact, Normal Color, Warm Assessment and Plan - Assessment and Plan (Free Text) Assessment: 58 y/o male with PMH of small cell lung cancer (diagnosed September 2017) with chemo/radiation/immunotherapy who presents to the ED with 2 weeks h/o right mid- thoracic back pain. CT chest consistent with large right pleural effusion and PNA. Waiting for thoracocentesis. Plan: Large R-Pleural Effusion in the setting of small cell lung cancer: -Patient is scheduled for thoracocentesis today with Dr Lilly, interventional radiologist -patient with recurrent effusion and subsequent thoracocentesis, last on 06/2018 -CT chest: large right sided pleural effusion and right sided PNA -O2 NC prn -bed elevation >30 degrees -Surgery consulted for pleurodesis, patient refused any surgical intervention/catheter placement at this time. He reports that it will be done at [facility] in [place] where he follow up for his lung cancer Pneumina: -continue vanc, cefepime as per ID -no leukocytosis, afebrile, low procal -blood/sputum Cx, NGTD -VB.43/47/43. lactate 0.7 -incentive spirometry -ID on board, Dr Conde Chronic bronchitis/COPD/ ex-smoker: -started xopenex prn Anemia: -likely due to chronic disease -H/H stable (baseline compared to last admission) -continue to monitor, transfuse prn Lower back pain: -continue home med percocet 10/325 prn q8h Chronic constipation: -likely due to opiate use -continue home colace bid PPX: DVT: SCD GI: protonix Regular diet PT Case reviewed and plan discussed with attending Dr Enrico Sweeney, <Mariel Weston R - Last Filed: 08/11/18 18:26> Objective - Vital Signs/Intake and Output Vital Signs (last 24 hours): Temp Pulse Resp BP Pulse Ox 98.7 F 96 H 18 116/69 93 L 08/11/18 08:36 08/11/18 08:36 08/11/18 08:36 08/11/18 08:36 08/11/18 08:36 - Medications Medications: Current Medications Arformoterol Tartrate (Brovana) 15 mcg IH [id number] [facility] Last Admin: 08/11/18 08:25 Dose: 15 mcg Budesonide (Pulmicort Respules) 0.5 mg IH [id number] [facility] Last Admin: 08/11/18 08:25 Dose: 0.5 mg Docusate Sodium (Colace) 100 mg PO BID [facility] Last Admin: 08/11/18 09:54 Dose: 100 mg Vancomycin HCl (Vancomycin 1gm) 1 gm in 250 mls @ 167 mls/hr IVPB Q12 EMILY; Protocol Last Admin: 08/11/18 09:55 Dose: 167 mls/hr Cefepime HCl (Maxipime 1gm) 1 gm in 100 mls @ 100 mls/hr IVPB Q8 [facility]ILY; Protocol Last Admin: 08/11/18 13:33 Dose: 100 mls/hr Levalbuterol HCl (Xopenex) 0.63 mg IH TIDRESP [facility] Last Admin: 08/11/18 14:25 Dose: 0.63 mg Levalbuterol HCl (Xopenex) 0.63 mg IH [id number] PRN PRN Reason: Shortness of Breath Ondansetron HCl (Zofran Inj) 4 mg IVP Q6H PRN PRN Reason: Nausea/Vomiting Last Admin: 08/11/18 09:55 Dose: 4 mg Oxycodone/Acetaminophen (Percocet 10/325 Mg Tab) 1 tab PO Q4 PRN PRN Reason: Pain, severe (8-10) Last Admin: 08/11/18 13:34 Dose: 1 tab Pantoprazole Sodium (Protonix Ec Tab) 40 mg PO 0600 [facility] Last Admin: 08/11/18 05:35 Dose: 40 mg - Labs Labs: 08/11/18 06:15 08/11/18 06:15 PT 13.5 SECONDS (9.4-12.5) H 08/09/18 10:50 INR 1.19 08/09/18 10:50 APTT 32.5 Seconds (26.9-38.3) 08/09/18 10:50 Attending/Attestation - Attestation I have personally seen and examined this patient.: Yes I have fully participated in the care of the patient.: Yes I have reviewed all pertinent clinical information, including history, physical exam and plan: Yes Notes (Text): Patient seen and examined by me with resident at approximately 10:20AM on 08/11/18. Case including HPI, physical exam, and assessment and plan discussed with resident. Agree with above with following additions/corrections. Patient is a 58-year-old male with past medical history significant for right- sided small cell lung cancer stage III per patient status post chemotherapy and radiation currently on immunotherapy, recurrent malignant right sided pleural effusion, chronic back pain, and COPD the presented to the emergency room for right-sided thoracic back pain. Patient states he is feeling better. Back pain has improved. Shortness of breath has improved. Cough has improved. Patient states he has not had a bowel movement and would like to try prune juice. No chest pain or palpitations. No nausea, vomiting, or abdominal pain. No headaches or dizziness. No fevers or chills. No dysuria. Physical exam: General: Awake and alert sitting up in bed in no acute distress. Cachectic appearing HEENT: Normocephalic, atraumatic. Extraocular muscles intact. Pupils equal and reactive, no scleral icterus. Oropharynx is pink and moist. No pharyngeal erythema or exudate appreciated. Neck is supple. Cardiovascular: Regular rhythm. Normal S1 and S2. No murmurs, rubs, or gallops appreciated Pulmonary: Normal respiratory effort. Decreased breath sounds, more prominent on right. No rhonci, rales, or wheezing appreciated. Gastrointestinal: Soft, nondistended. Nontender. Positive bowel sounds all 4 quadrants. No guarding. Musculoskeletal: Moves all extremities. No calf tenderness. No edema appreciated. positive tenderness along medial side of scapula. Central nervous system: AAO x3. CN2-12 grossly intact. Dermatologic: Skin warm and dry. Assessment and plan: Patient is a 58-year-old male with past medical history significant for right-sided small cell lung cancer stage III per patient status post chemotherapy and radiation currently on immunotherapy, recurrent malignant right sided pleural effusion, chronic back pain, and COPD the presented to the emergency room for right-sided thoracic back pain. 1. Large right pleural effusion. Recurrent. Likely malignant. Patient for thoracentesis today. Continue O2 via nasal cannula. Continue nebulizer treatments as tolerated. Surgery recommendations appreciated. Patient refusing surgical procedure here. Also does not want pleurx cath placed here. CTA chest per radiologist showed sided pneumonia and large pleural effusion, no evidence of pulmonary embolism. 2. Right sided pneumonia. As seen on CTA chest. No leukocytosis. Afebrile. Procalcitonin <0.05. Blood cultures with no growth to day. ID recommendations appreciated. Continue Vancomycin and Cefepime. Follow up chest xray post thoracentesis. 3. COPD. No acute exacerbation. Continue nebulizer treatments, brovana, and symbicort. 4. Anemia. Chronic. Likely secondary to malignancy. No signs of acute bleeding. H&H stable. Continue to monitor. 5. Stage 3 small cell lung cancer. Patient follows at [facility] in [place]. S/P chemo and radiation. Now on immunotherapy. Patient to continue to follow outpatient. 6. Chronic back pain. Percocet was increased to q4hrs for better pain control 7. History of constipation. Continue home Colace. Will try prune juice Case was discussed in detail with the patient regarding current diagnosis, study results, and treatment plan. All questions answered.
[2018-08-11 07:16] LABS: ALB/GLOB RATIO 0.9 (1.1-1.8); ALBUMIN 3.4 g/dL (3.0-4.8); ALT/SGPT 8 U/L (7-56); AST/SGOT 23 U/L (17-59); BLOOD UREA NITROGEN 11 mg/dL (7-21); CALCIUM 9.3 mg/dL (8.4-10.5); GFR NON-AFRICAN AMERICAN > 60
[2018-08-11] MEDS: Levalbuterol 0.63 MG/3 ML Inhal Soln UD IH SCH ×3 (08:25→20:01)
[2018-08-11] MEDS: Arformoterol 15 mcg/2 ml Inh Sol IH SCH ×2 (08:25→20:01)
[2018-08-11] MEDS: Budesonide 0.5 mg/2 ml Inhal Susp UD IH SCH ×2 (08:25→20:01)
[2018-08-11] MEDS: Vancomycin 1gm in NS 250ml 1 GM/250 ML BAG IVPB SCH ×2 (09:55→22:42)
--- NOTE | 2018-08-11 11:47 | PCM.SURG1 ---
Surgeon's Initial Post Op Note - Surgeon's Notes Surgeon: Chet Lilly MD [employer] Specialist: NONE Type of Anesthesia: Local Pre-Operative Diagnosis: Lung cancer Operative Findings: US showed a large right pleural effusion Post-Operative Diagnosis: Lung cancer Operation Performed: Right thoracentesis Specimen/Specimens Removed: 1.5 liters of yellow fluid Estimated Blood Loss: EBL {In ML}: 0 Blood Products Given: N/A Post-Op Condition: Fair Date of Surgery/Procedure: 08/11/18 Time of Surgery/Procedure: 11:45
--- NOTE | 2018-08-11 12:30 | US ---
PROCEDURE: Date of procedure: 08/11/2018 Procedure: 1. Ultrasound-guided Right thoracentesis, CPT 83896 Medications: 6cc 1% Lidocaine HISTORY: Right pleural effusion, lung cancer, shortness of breath TECHNIQUE: Following informed consent ,the Patients' right chest was marked. Procedure time-out was called, and the patient was placed in the sitting position and limited ultrasound showed a large right effusion. The patient's right back was prepped and draped in the usual sterile fashion. After the skin was anesthetized with lidocaine, a drainage catheter was advanced under ultrasound guidance into the pleural space. Ultrasound-guided thoracentesis was performed. A total of 1500 cubic centimeters of straw-colored fluid removed without complication. A Xeroform dressing was applied. IMPRESSION: Ultrasound guided Right thoracentesis. There were no immediate complications.
--- NOTE | 2018-08-11 12:58 | PCM.PCON ---
History of Present Illness - History of Present Illness History of Present Illness: Palliative consult requested by Reason: Goals of care This is a 58 y hear old male with history of SCLC on immunotherapy who presented on with persistent cough and back pain. He described the pain as more severe over the past 3 weeks. It is localized to between his shoulder blades, stabbing 10 out of 10 pain. The dry cough has persisted for 3 weeks. He also has dyspnea on exertion. He denied fever, chills, nausea, vomiting, abdominal /chest pain, dysuria,rash CT: Large R pleural effusion with consolidation.No PE Thoracentisis today,1.5 liters of yellow fluid Labs: Wbc 4.7, Hgb 9.6, Plt 362,Na 136, K 4.2, BUN 11, Patron Attendant 0.7, glucose 95, AST 2, ALT 8,Albumin 3.7 PMHx: Stage IV Small cell lung cancer (2018) on immunotherapy PSHx:thoracentisis, PEG tube (4 months ago), Biopsy x2 (2018) Social Hist: Former smoker (20 year 1/2 PPD), former drinker (quit 10-12 years ago), rare marijuana use> , lives with spouse. Advance Care Planning : The patient does not have an Advanced Directive Review of Systems - Review of Systems All systems: reviewed and no additional remarkable complaints except Review of Systems: weakness Physical Exam - Constitutional Appears: No Acute Distress, Cachectic - Eye Exam Eye Exam: Normal appearance, PERRL - ENT Exam ENT Exam: Mucous Membranes Moist, Normal Oropharynx - Neck Exam Neck exam: Positive for: Normal Inspection - Respiratory Exam Respiratory Exam: Decreased Breath Sounds, NORMAL BREATHING PATTERN - Cardiovascular Exam Cardiovascular Exam: REGULAR RHYTHM, +S1, +S2 - GI/Abdominal Exam GI & Abdominal Exam: Normal Bowel Sounds, Soft - Extremities Exam Extremities exam: Positive for: full ROM, pedal pulses present - Back Exam Back exam: NORMAL INSPECTION - Neurological Exam Neurological exam: Alert, Oriented x3 - Psychiatric Exam Psychiatric exam: Normal Mood - Skin Skin Exam: Dry, Warm - Additional Findings Additional findings: Palliative performance scale rating 70% Palliative Care Assessment - Modified MRC Dyspnea Scale Modified MRC Dyspnea Scale: Short of Breath when hurrying or walking up a slight hill Grade: 2 - Pain Scale Pain Score: 10 Pain Scale Used: Numeric - Pain Location Pain Location Body Site: Back - Pain Description Description: Stabbing Intensity of pain at present: 2 Aggravating Factors: Exercise/Activity Alleviating Factors/Management Techniques: Medication - [place] Scale Sensory Perception: Slightly Limited Moisture: Rarely Moist Activity: Walks Frequently Mobility: Slightly Impaired Nutrition: Adequate Friction & Shear: No Apparent Problem Total Score - Skin Risk Assessment: 20 - Psychosocial Distress Patient screened for psychosocial distress: Yes Outcome: Resolved Palliative Care - Goals Treatment Goal(s): Alleviate symptoms, Improve ADLs, Improve quality of life End of life care discussed: Yes - Plan Interdisciplinary involved: social worker delinquency prevention Discharge planning: Home Assessment & Plan - Assessment and Plan (Free Text) Assessment: 58 year old male with history of small cell lung cancer who is admitted with dyspnea,cough, large right pleural effusion and mid-thoracic back pain. He is s/p thoracocentesis. Mr Shaw is alert, pleasant,states he does not have pain at this time. He is aware of his diagnosis and the reason for this admission. He is being treated at [facility] cancer center. Scheduled for PET scan next week. He states that he has been out of work on disability but is hoping to go back before retiring in October. 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 He is , states his family is very supportive. He intends to continue treatment of his disease. His attitude is positive. He states that he "doesn't give up easily". He does not have an Advanced Directive. He understands the ramifications of CPR/intubation and wants to be full code status. Psychosocial support provided. Time spent in goals of care and advance care planning discussion, 30 minutes Plan: Goals of care and advance care planning Pleural effusion; s/p thoracentisis,Nebulzers Pain management; Percocet as ordered Bowel regimen SCLC: Follow up with oncologist at [facility] Thanks you for allowing me to participate in your paits care, will sign off for now
--- NOTE | 2018-08-11 16:07 | CP.PCM.PN ---
Subjective - Date & Time of Evaluation Date of Evaluation: 08/11/18 Time of Evaluation: 15:30 - Subjective Subjective: Infectious Disease Follow Up: August 11, 2018 58 y/o male with PMH of small cell lung cancer (diagnosed September 2017) with chemo/radiation/immunotherapy, recurrent pleural effusion who presents to the ED with 2 weeks h/o right mid-thoracic back pain, sharp, constant, 7-8/10, no radiation, increased with inspiration, relieved with percocet. It's different than his usual chronic lower back pain. Pain associated with SOB (for 3 weeks), ETIENNE, cough with blood tinged sputum, chest congestion. Patient denies associated fever, chills, mid-sternal pain, palpitations, hemoptysis. Patient states having URI 2 weeks ago, seen by his PMD and finished 4 day course of amoxicillin with symptoms improving. Patient had 3 hospital admission due to pulmonary effusion since diagnosis. Last admission on June/2018 with therapeutic thoracocentesis. He also noted small superficial lump in right thoracic area between scapula and vertebral spine x1 week. It's non tender, denied similar mass, denies h/o lipoma before. Patient is scheduled for PET scan at [facility] in [place] next week. Patient denies palpitations, headache, dizziness, recent weight loss, and leg swelling. ID called for possible pneumonia. Procalcitonin was <0.05. CT chest showing large pleural effusion and possible right sided pneumonia. The patient states that he is feeling better. Taken to IR on 08/11/2018 for thoracentesis. Patient feeling better since. Objective - Vital Signs/Intake and Output Vital Signs (last 24 hours): Temp Pulse Resp BP Pulse Ox 98.7 F 96 H 18 116/69 93 L 08/11/18 08:36 08/11/18 08:36 08/11/18 08:36 08/11/18 08:36 08/11/18 08:36 - Medications Medications: Current Medications Arformoterol Tartrate (Brovana) 15 mcg IH [id number] [facility] Last Admin: 08/11/18 08:25 Dose: 15 mcg Budesonide (Pulmicort Respules) 0.5 mg IH [id number] [facility] Last Admin: 08/11/18 08:25 Dose: 0.5 mg Docusate Sodium (Colace) 100 mg PO BID [facility] Last Admin: 08/11/18 09:54 Dose: 100 mg Vancomycin HCl (Vancomycin 1gm) 1 gm in 250 mls @ 167 mls/hr IVPB Q12 [facility]; Protocol Last Admin: 08/11/18 09:55 Dose: 167 mls/hr Cefepime HCl (Maxipime 1gm) 1 gm in 100 mls @ 100 mls/hr IVPB Q8 [facility]; Protocol Last Admin: 08/11/18 13:33 Dose: 100 mls/hr Levalbuterol HCl (Xopenex) 0.63 mg IH TIDRESP [facility] Last Admin: 08/11/18 14:25 Dose: 0.63 mg Levalbuterol HCl (Xopenex) 0.63 mg IH [id number] PRN PRN Reason: Shortness of Breath Ondansetron HCl (Zofran Inj) 4 mg IVP Q6H PRN PRN Reason: Nausea/Vomiting Last Admin: 08/11/18 09:55 Dose: 4 mg Oxycodone/Acetaminophen (Percocet 10/325 Mg Tab) 1 tab PO Q4 PRN PRN Reason: Pain, severe (8-10) Last Admin: 08/11/18 13:34 Dose: 1 tab Pantoprazole Sodium (Protonix Ec Tab) 40 mg PO 0600 [facility] Last Admin: 08/11/18 05:35 Dose: 40 mg - Labs Labs: 08/11/18 06:15 08/11/18 06:15 PT 13.5 SECONDS (9.4-12.5) H 08/09/18 10:50 INR 1.19 08/09/18 10:50 APTT 32.5 Seconds (26.9-38.3) 08/09/18 10:50 - Constitutional Appears: Non-toxic, No Acute Distress, Cachectic, Chronically Ill - Head Exam Head Exam: ATRAUMATIC, NORMOCEPHALIC - Eye Exam Eye Exam: EOMI, PERRL Pupil Exam: NORMAL ACCOMODATION, PERRL - ENT Exam ENT Exam: Mucous Membranes Moist, Normal External Ear Exam, TM's Normal Bilaterally - Neck Exam Neck Exam: Full ROM, Normal Inspection - Respiratory Exam Respiratory Exam: Decreased Breath Sounds, NORMAL BREATHING PATTERN. absent: Rales, Rhonchi, Wheezes Additional comments: right lung - Cardiovascular Exam Cardiovascular Exam: REGULAR RHYTHM, RRR, +S1, +S2 - GI/Abdominal Exam GI & Abdominal Exam: Soft, Normal Bowel Sounds. absent: Distended, Tenderness - Extremities Exam Extremities Exam: Full ROM, Normal Inspection - Back Exam Additional comments: 1 cm superficial lump in right thoracic area between scapula and vertebral spine, non tender to palpation, no erythema, no wound noted - Neurological Exam Neurological Exam: Alert, Awake, CN II-XII Intact, Oriented x3 - Psychiatric Exam Psychiatric exam: Normal Affect, Normal Mood - Skin Skin Exam: Intact, Normal Color Assessment and Plan - Assessment and Plan (Free Text) Assessment: 58 yo male with history of small cell lung cancer presenting with right sided and thoracic back pain. CT scan showing right sided pleural effusion. Started on Cefepime and Vancomycin for antibiotic therapy. Obtain Procalcitonin... value less than <0.05. No leukocytosis. Supportive care. CT scan showing large right sided pleural effusion and possible right sided pneumonia. Remains on Cefepime and IV Vancomycin. Serial Chest X-ray. S/P IR thoracentesis on 08/11/2018. Feeling better. His plan is for follow up at [facility] where his oncologist is. Thank you for allowing me to participate in the care of the patient, we will fo llow with you.
[2018-08-12] MEDS: Oxycodone/Acetaminophen 10/325 mg Tab PO PRN ×3 (01:06→09:12)
[2018-08-12] MEDS: Cefepime 1gm in NS 100ml 1 GM/100 ML BAG IVPB SCH (05:29)
[2018-08-12] MEDS: Pantoprazole 40 mg EC Tab PO SCH (05:29)
[2018-08-12] MEDS: Budesonide 0.5 mg/2 ml Inhal Susp UD IH SCH (07:07)
[2018-08-12] MEDS: Arformoterol 15 mcg/2 ml Inh Sol IH SCH (07:07)
[2018-08-12] MEDS: Levalbuterol 0.63 MG/3 ML Inhal Soln UD IH SCH (07:07)
[2018-08-12 07:49] LABS: BASO # 0.02 K/mm3 (0.0-2.0); BASO % 0.4 % (0.0-3.0); EOS # 0.1 (0.0-0.7); EOS % 2.1 % (1.5-5.0); HEMOGLOBIN 9.3 g/dL (14.0-18.0); LYMPH % 21.8 % (22.0-35.0); MEAN CELL VOLUME 81.6 fl (80.0-105.0); MEAN CORPUSCULAR HEMOGLOBIN 24.7 pg (25.0-35.0); MEAN CORPUSCULAR HGB CONC 30.3 g/dl (31.0-37.0); MEAN PLATELET VOLUME 8.3 fl (7.0-11.0); MONO # 0.5 (0.1-0.6); MONO % 10.8 % (1.0-6.0); RBC 3.76 10^6/uL (3.5-6.1); RED CELL DISTRIBUTION WIDTH 17.5 % (11.5-14.5); WHITE BLOOD COUNT 4.7 10^3/uL (4.5-11.0)
[2018-08-12 08:01] LABS: ALBUMIN 3.3 g/dL (3.0-4.8); ALT/SGPT 11 U/L (7-56); AST/SGOT 20 U/L (17-59); BLOOD UREA NITROGEN 12 mg/dL (7-21); CALCIUM 8.9 mg/dL (8.4-10.5); GFR NON-AFRICAN AMERICAN > 60
[2018-08-12 08:16] VITALS: BP 109/67; PULSE 90; RESP 16; TEMP 98; O2SAT 99
[2018-08-12] MEDS: Vancomycin 1gm in NS 250ml 1 GM/250 ML BAG IVPB SCH (09:12)
--- NOTE | 2018-08-12 11:28 | RAD ---
Date of service: 08/12/2018 HISTORY: Left pleural effusion and pneumonia COMPARISON: 08/09/2018. TECHNIQUE: Chest PA and lateral FINDINGS: LINES AND TUBES: None. LUNG AND PLEURA: The lungs are well inflated. Again seen is consolidation with air bronchogram in the right suprahilar region and right lower lobe. There is also patchy nodular airspace disease in the left lower lobe. Moderate right pleural effusion. No pneumothorax. HEART AND MEDIASTINUM: The heart is not enlarged. No aortic atherosclerotic calcifications present. The hilar and mediastinal contours are within normal limits. SKELETAL STRUCTURES: The bony structures are within normal limits for the patient's age. VISUALIZED UPPER ABDOMEN: Normal. OTHER FINDINGS: None. IMPRESSION: Little interval change in presumable multifocal pneumonia in the right suprahilar region and right lower lobe. Moderate right pleural effusion. Suspect patchy nodular bronchopneumonia in the left lower lobe. Follow-up after medical management is recommended to ensure complete resolution.
--- NOTE | 2018-08-12 12:08 | CP.PCM.PN ---
Subjective - Date & Time of Evaluation Date of Evaluation: 08/12/18 Time of Evaluation: 11:00 - Subjective Subjective: Infectious Disease Follow Up: August 12, 2018 58 y/o male with PMH of small cell lung cancer (diagnosed September 2017) with chemo/radiation/immunotherapy, recurrent pleural effusion who presents to the ED with 2 weeks h/o right mid-thoracic back pain, sharp, constant, 7-8/10, no radiation, increased with inspiration, relieved with percocet. It's different than his usual chronic lower back pain. Pain associated with SOB (for 3 weeks), ETIENNE, cough with blood tinged sputum, chest congestion. Patient denies associated fever, chills, mid-sternal pain, palpitations, hemoptysis. Patient states having URI 2 weeks ago, seen by his PMD and finished 4 day course of amoxicillin with symptoms improving. Patient had 3 hospital admission due to pulmonary effusion since diagnosis. Last admission on June/2018 with therapeutic thoracocentesis. He also noted small superficial lump in right thoracic area between scapula and vertebral spine x1 week. It's non tender, denied similar mass, denies h/o lipoma before. Patient is scheduled for PET scan at [facility] [place] in [place] next week. Patient denies palpitations, headache, dizziness, recent weight loss, and leg swelling. ID called for possible pneumonia. Procalcitonin was <0.05. CT chest showing large pleural effusion and possible right sided pneumonia. The patient states that he is feeling better. Taken to IR on 08/11/2018 for thoracentesis. Patient feeling better since. No complaints. Ready to go home. Objective - Vital Signs/Intake and Output Vital Signs (last 24 hours): Temp Pulse Resp BP Pulse Ox 98 F 90 16 109/67 99 08/12/18 08:15 08/12/18 10:00 08/12/18 08:15 08/12/18 08:15 08/12/18 08:15 - Labs Labs: 08/12/18 06:00 08/12/18 06:00 PT 13.5 SECONDS (9.4-12.5) H 08/09/18 10:50 INR 1.19 08/09/18 10:50 APTT 32.5 Seconds (26.9-38.3) 08/09/18 10:50 - Constitutional Appears: Non-toxic, No Acute Distress, Chronically Ill - Head Exam Head Exam: ATRAUMATIC, NORMOCEPHALIC - Eye Exam Eye Exam: EOMI, PERRL Pupil Exam: NORMAL ACCOMODATION, PERRL - ENT Exam ENT Exam: Mucous Membranes Moist, Normal External Ear Exam, TM's Normal Bilaterally - Neck Exam Neck Exam: Full ROM, Normal Inspection - Respiratory Exam Respiratory Exam: Decreased Breath Sounds (right lung but improved since thoracentesis), NORMAL BREATHING PATTERN. absent: Rales, Rhonchi, Wheezes - Cardiovascular Exam Cardiovascular Exam: REGULAR RHYTHM, RRR, +S1, +S2 - GI/Abdominal Exam GI & Abdominal Exam: Soft, Normal Bowel Sounds. absent: Distended, Tenderness - Extremities Exam Extremities Exam: Full ROM, Normal Inspection - Back Exam Additional comments: 1 cm superficial lump in right thoracic area between scapula and vertebral spine, non tender to palpation, no erythema, no wound noted - Neurological Exam Neurological Exam: Alert, Awake, CN II-XII Intact, Oriented x3 - Psychiatric Exam Psychiatric exam: Normal Affect, Normal Mood - Skin Skin Exam: Intact, Normal Color Assessment and Plan - Assessment and Plan (Free Text) Assessment: 58 yo male with history of small cell lung cancer presenting with right sided and thoracic back pain. CT scan showing right sided pleural effusion. Started on Cefepime and Vancomycin for antibiotic therapy. Obtain Procalcitonin... value less than <0.05. No leukocytosis. Supportive care. CT scan showing large right sided pleural effusion and possible right sided pneumonia. Remains on Cefepime and IV Vancomycin. Serial Chest X-ray. S/P IR thoracentesis on 08/11/2018. Feeling better. His plan is for follow up at [facility] where his oncologist is. For discharge today. Thank you for allowing me to participate in the care of the patient, we will follow with you.
--- NOTE | 2018-08-12 14:38 | CP.PCM.DIS ---
Provider - Provider Date of Admission: 08/09/18 16:39 Attending physician: Mariel Weston DO Primary care physician: Naeem Moncada Consults: 08/09/18 16:59 Physician Consult Routine Comment: Consulting Provider: Marcel Conde Consulting Physician: Marcel Conde Reason for Consult: RLL pneumonia, pleaural effusion, SCLC 08/09/18 17:01 Transition In Care/Readmission Reduction Routine Comment: Physician Instructions: Reason For Exam: Protocol 08/09/18 17:13 Physician Consult Routine Comment: Consulting Provider: Stoney Lo Consulting Physician: Stoney Lo Reason for Consult: right pulm effusion, SCLC 08/09/18 17:31 Palliative Care Consult Routine Comment: Consulting Provider: Sweetie Andrade Physician Instructions: Reason For Exam: Stage III SCLC, large pleural effusion 08/09/18 22:39 Social Work Referral Routine Comment: pleural effusion Physician Instructions: Reason For Exam: assess 08/09/18 22:57 Inpatient PLASTER PAT[employer] Core Measures Referral Routine Comment: pl eff Physician Instructions: Reason For Exam: assess 08/10/18 12:06 Physician Consult Routine Comment: Consulting Provider: Chet Lilly Consulting Physician: Chet Lilly Reason for Consult: recurrent right sided pleural effusion, SCLC 08/10/18 12:15 Consult [Physician Consult] Routine Comment: Consulting Provider: Cem Lazo Consulting Physician: Cem Lazo Reason for Consult: recurrent pleural effusion, small cell lung cancer 08/10/18 12:28 Physician Consult Routine Comment: Consulting Provider: Carmelo Smyth Consulting Physician: Carmelo Smyth Reason for Consult: recurrent pleural effusion, SCLC Time Spent in preparation of Discharge (in minutes): 45 Diagnosis - Discharge Diagnosis (1) Pleural effusion Status: Chronic (2) Lung cancer Status: Chronic Hospital Course - Lab Results Lab Results: Micro Results 08/09/18 12:20 Blood-Venous Blood Culture - Preliminary NO GROWTH AFTER 3 DAYS 08/09/18 11:50 Blood-Venous Blood Culture - Preliminary NO GROWTH AFTER 3 DAYS 08/09/18 17:00 Urine,Clean Catch Urine Culture - Final No Growth (<1,000 CFU/ML) Most Recent Lab Values WBC 4.7 10^3/uL (4.5-11.0) 08/12/18 06:00 RBC 3.76 10^6/uL (3.5-6.1) 08/12/18 06:00 Hgb 9.3 g/dL (14.0-18.0) L 08/12/18 06:00 Hct 30.7 % (42.0-52.0) L 08/12/18 06:00 MCV 81.6 fl (80.0-105.0) 08/12/18 06:00 MCH 24.7 pg (25.0-35.0) L 08/12/18 06:00 MCHC 30.3 g/dl (31.0-37.0) L 08/12/18 06:00 RDW 17.5 % (11.5-14.5) H 08/12/18 06:00 Plt Count 370 10^3/uL (120.0-450.0) 08/12/18 06:00 MPV 8.3 fl (7.0-11.0) 08/12/18 06:00 Neut % (Auto) 64.9 % (50.0-68.0) 08/12/18 06:00 Lymph % (Auto) 21.8 % (22.0-35.0) L 08/12/18 06:00 Harrison % (Auto) 10.8 % (1.0-6.0) H 08/12/18 06:00 Eos % (Auto) 2.1 % (1.5-5.0) 08/12/18 06:00 Baso % (Auto) 0.4 % (0.0-3.0) 08/12/18 06:00 Lymph # (Auto) 1.0 (1.2-3.4) L 08/12/18 06:00 Harrison # (Auto) 0.5 (0.1-0.6) 08/12/18 06:00 Eos # (Auto) 0.1 (0.0-0.7) 08/12/18 06:00 Baso # (Auto) 0.02 K/mm3 (0.0-2.0) 08/12/18 06:00 Absolute Neuts (auto) 3.06 (1.4-6.5) 08/12/18 06:00 PT 13.5 SECONDS (9.4-12.5) H 08/09/18 10:50 INR 1.19 08/09/18 10:50 APTT 32.5 Seconds (26.9-38.3) 08/09/18 10:50 pO2 43 mm/Hg (30-55) 08/09/18 12:00 VBG pH 7.43 (7.32-7.43) 08/09/18 12:00 VBG pCO2 47.0 (40-60) 08/09/18 12:00 VBG HCO3 31.2 mmol/l (21-28) H 08/09/18 12:00 VBG Total CO2 32.6 mmol.L (22-28) H 08/09/18 12:00 VBG O2 Sat (Calc) 79.5 % (40-65) H 08/09/18 12:00 VBG Base Excess 5.8 mmol/L (0.0-2.0) H 08/09/18 12:00 VBG Potassium 3.9 mmol/L (3.6-5.2) 08/09/18 12:00 Sodium 138.0 mmol/L (132-148) 08/09/18 12:00 Chloride 104.0 mmol/L (98-107) 08/09/18 12:00 Glucose 94 mg/dl (75-110) 08/09/18 12:00 Lactate 0.7 mmol/L (0.7-2.1) 08/09/18 12:00 FiO2 21.0 % 08/09/18 12:00 Sodium 136 mmol/L (132-148) 08/12/18 06:00 Potassium 4.1 mmol/L (3.6-5.0) 08/12/18 06:00 Chloride 99 mmol/L (98-107) 08/12/18 06:00 Carbon Dioxide 30 mmol/L (21-33) 08/12/18 06:00 Anion Gap 11 (10-20) 08/12/18 06:00 BUN 12 mg/dL (7-21) 08/12/18 06:00 Creatinine 0.6 mg/dl (0.8-1.5) L 08/12/18 06:00 Est GFR ( Amer) > 60 08/12/18 06:00 Est GFR (Non-Af Amer) > 60 08/12/18 06:00 Random Glucose 111 mg/dL (70-110) H 08/12/18 06:00 Calcium 8.9 mg/dL (8.4-10.5) 08/12/18 06:00 Phosphorus 4.3 mg/dL (2.5-4.5) 08/10/18 06:00 Magnesium 1.9 mg/dL (1.7-2.2) 08/10/18 06:00 Total Bilirubin 0.1 mg/dL (0.2-1.3) L 08/12/18 06:00 AST 20 U/L (17-59) 08/12/18 06:00 ALT 11 U/L (7-56) 08/12/18 06:00 Alkaline Phosphatase 61 U/L (38-126) 08/12/18 06:00 NT-Pro-B Natriuret Pep 82.7 pg/mL (0-450) 08/09/18 10:50 Total Protein 6.7 g/dL (5.8-8.3) 08/12/18 06:00 Albumin 3.3 g/dL (3.0-4.8) 08/12/18 06:00 Globulin 3.4 gm/dL 08/12/18 06:00 Albumin/Globulin Ratio 1.0 (1.1-1.8) L 08/12/18 06:00 Procalcitonin < 0.05 NG/ML (0.19-0.49) L 08/09/18 17:00 Venous Blood Potassium 3.9 mmol/L (3.6-5.2) 08/09/18 12:00 Urine Color Yellow (YELLOW) 08/09/18 12:40 Urine Appearance Turbid (CLEAR) 08/09/18 12:40 Urine pH 7.0 (4.7-8.0) 08/09/18 12:40 Ur Specific [place] 1.025 (1.005-1.035) 08/09/18 12:40 Urine Protein 30 mg/dL (<30 mg/dL) H 08/09/18 12:40 Urine Glucose (UA) Negative mg/dL (NEGATIVE) 08/09/18 12:40 Urine Ketones Negative mg/dL (NEGATIVE) 08/09/18 12:40 Urine Blood Large (NEGATIVE) H 08/09/18 12:40 Urine Nitrate Negative (NEGATIVE) 08/09/18 12:40 Urine Bilirubin Negative (NEGATIVE) 08/09/18 12:40 Urine Urobilinogen 1.0 E.U./dL (<1 E.U./dL) H 08/09/18 12:40 Ur Leukocyte Esterase Negative Walter/uL (NEGATIVE) 08/09/18 12:40 Urine RBC 0 - 2 /hpf (0-2) 08/09/18 12:40 Urine WBC 5 - 10 /hpf (0-6) H 08/09/18 12:40 Urine Bacteria Trace /hpf (NONE) 08/09/18 12:40 - Hospital Course Hospital Course: Tashi Mae DO, PGY-1 Hospitalist Discharge Summary for Dr. Ramona Weston Prior to admission: Patient is a 58 year old male with PMH of R-sided small cell lung CA (stage III s/p chemotherapy and XRT currently on immunotherapy), recurrent malignant R-sided pleural effusion, chronic back pain, and COPD who presented to ED with worsening R-sided thoracic pain radiating to the back. He also complained of worsened SOB to the point that he could not lye flat without becoming significantly dyspneic. He admitted to similar episodes in the past which have been relieved by thoracentesis. He admitted to following up with his oncologist regularly, most recently the day prior to his presentation. He was subsequently admitted for management of recurrent R-pleural effusion and worsened dyspnea. Hospitalization course: Patient had chest CT which confirmed R-sided effusion with possible R-sided infiltrate as well. Patient was subsequently started on vanc/cefepime for empiric coverage. CT surgery was consulted for possible VATS procedure but patient refused any surgical intervention, aside from thoracentesis, at this point. IR was consulted and patient subsequently underwent thoracentesis with relief of symptoms. Procal was noted to be negative so abx were discontinued for now but patient to f/u closely with oncologist and PMD at [facility]. Patient was seen and examined this AM and it appears SOB has improved since admission. Patient states he feels ready to go home. Scripts for small supply of pain medicines and inhaler refill were given to patient at his request. Discharge plan was discussed with patient. All questions were answered. Patient seen, examined with, and discharge plan discussed with my attending Dr. Ramona Mae D.O. IM Resident PGY-1 Discharge Exam - Head Exam Head Exam: ATRAUMATIC, NORMOCEPHALIC - Eye Exam Eye Exam: EOMI, PERRL - ENT Exam ENT Exam: Mucous Membranes Moist - Neck Exam Neck exam: Full Rom, Normal Inspection - Respiratory Exam Respiratory Exam: Decreased Breath Sounds (decreased breath sounds on R consistent w/pleural effusion but improved from prior exams). absent: Rales, Rhonchi, Wheezes - Cardiovascular Exam Cardiovascular Exam: REGULAR RHYTHM, RRR, +S1, +S2. absent: Diastolic murmur, Gallop, Rubs, Systolic Murmur - GI/Abdominal Exam GI & Abdominal Exam: Normal Bowel Sounds, Unremarkable. absent: Tenderness - Extremities Exam Extremities exam: full ROM, normal inspection - Back Exam Back exam: FULL ROM, NORMAL INSPECTION - Neurological Exam Neurological exam: Alert, Oriented x3 - Psychiatric Exam Psychiatric exam: Normal Affect, Normal Mood - Skin Skin Exam: Dry, Intact, Warm Discharge Plan - Discharge Medications Prescriptions: Acetaminophen/Oxycodone Hydr [Percocet 10/325 mg Tab] 1 tab PO Q4 PRN #12 tab PRN Reason: Pain, Severe (8-10) Albuterol Sulfate [Ventolin Hfa] 1 puff IH Q4H PRN #1 ml PRN Reason: Shortness Of Breath Cefuroxime Axetil [Cefuroxime] 500 mg PO Q12H 4 Days #8 tablet - Follow Up Plan Condition: FAIR Disposition: HOME/ ROUTINE Instructions: Thoracentesis, Pleural Effusion (DC), Lung Cancer (DC), Thoracentesis (DC), Fiduciary Markers (DC) Additional Instructions: Please follow up with your primary medical doctor, Dr. Moncada, within 3-5 days of discharge. Please follow up with your oncologist at [facility] at your scheduled appointment on 08/15/18. You may require a repeat thoracentesis if fluid builds up again. We have given you a prescription for your pain medicine. Please follow up with your primary doctor or oncologist for any refills needed. If any of your symptoms return or you experience new concerning symptoms, please go to nearest emergency department. Referrals: Naeem Moncada MD [Primary Care Provider] -
== END 2018-08-12 11:22 | disposition home or self-care (01) | DRG 82 ==
LOC: ED 10:22 → ERH 16:39 → 3RNO 17:59
PROVIDERS: ADMIT Hospitalist; ATTEND Hospitalist
PROC: BB4BZZZ Ultrasonography of Pleura (ICD-10-PCS; 2018-08-11)
PROC: 0W993ZZ Drainage of Right Pleural Cavity, Percutaneous Approach (ICD-10-PCS; principal; 2018-08-11 11:00)
DX: C34.91 Malignant neoplasm of unspecified part of right bronchus or lung (principal); J91.0 Malignant pleural effusion; J44.0 Chronic obstructive pulmonary disease with (acute) lower respiratory infection; D63.0 Anemia in neoplastic disease; M54.5 Low back pain; K59.09 Other constipation; Z82.49 Family history of ischemic heart disease and other diseases of the circulatory system; Z80.1 Family history of malignant neoplasm of trachea, bronchus and lung; Z87.01 Personal history of pneumonia (recurrent); Z92.21 Personal history of antineoplastic chemotherapy; Z92.3 Personal history of irradiation; Z87.891 Personal history of nicotine dependence